=== PATIENT | female | born 1965 | race Caucasian/White ===

== ENCOUNTER 2024-02-14 10:49 | Outpatient (CLI) | payer MEDICARE, SELFPAY ==
--- NOTE | ~2024-02-14 | MR_ITS ---
EXAMINATION: MR shoulder RT wo con DATE: 02/14/2024 11:26 INDICATION: Primary osteoarthritis of the right shoulder TECHNIQUE: Magnetic resonance imaging (MRI) of the right shoulder was performed without intravenous c ontrast. Sequences included axial PD-weighted FS FSE, coronal oblique PD-weighted FS FSE, coronal obl ique T2-weighted FS FSE, sagittal PD-weighted FS FSE, and sagittal T1-weighted SE. COMPARISON: None. FINDINGS: Coracoacromial arch: The acromion undersurface is curved in morphology (type II). The coracoacromial ligament is normal. M oderate acromioclavicular osteoarthritis. Rotator cuff: Mild supraspinatus and infraspinatus tendinopathy without tear. The teres minor tendon is normal. Mil d subscapularis tendinopathy without tear. Normal rotator cuff muscle bulk and signal. Biceps tendon, glenoid labrum and glenohumeral cartilage: Long head of the biceps tendon is normal. There is advanced right glenohumeral osteoarthritis with ex tensive full-thickness cartilage loss with remodeling of the articular surface of the humeral head an d posterior glenoid. There is a tear along the base of the inferior, posterior and superior labrum. T he anterior labrum appears diminutive, partially replaced by marginal osteophytes. Fluid: Small glenohumeral joint effusion. No loose osteochondral bodies. Mild increased fluid signal in the subacromial/subdeltoid bursa consistent with mild bursitis. Bones: No acute fracture. There is suggestion of an old healed Bankart fracture at the anteroinferior glenoi d.. Mild cystic change at the greater tuberosity. IMPRESSION: 1. Advanced right glenohumeral osteoarthritis with extensive labral tear which could be secondary to prior trauma suggests an old healed osseous Bankart fracture at the anteroinferior glenoid. 2. Mild supraspinatus, infraspinatus and teres minor tendinopathy without tear. 2. Moderate acromioclavicular osteoarthritis with mild underlying subacromial/subdeltoid bursitis. Reviewed, dictated and finalized at location B. IMPRESSION: 1. Advanced right glenohumeral osteoarthritis with extensive labral tear which could be secondary to prior trauma suggests an old healed osseous Bankart fract ure at the anteroinferior glenoid. 2. Mild supraspinatus, infraspinatus and teres minor tendinopathy without tear. 2. Moderate acromioclavicular osteoarthritis with mild underlying subacromial/s ubdeltoid bursitis.
== END 2024-02-14 10:50 ==
LOC: MICIMG 10:50
PROVIDERS: PCP Orthopaedic Surgery; Visit Provider Orthopaedic Surgery
DX: M19.011 Primary osteoarthritis, right shoulder (principal); M67.813 Other specified disorders of tendon, right shoulder
CPT/HCPCS: 73221

== ENCOUNTER 2024-04-08 07:48 | Outpatient (CLI) | payer MEDICARE, SELFPAY ==
--- NOTE | ~2024-04-08 | CT_ITS ---
EXAMINATION: CT shoulder RT wo con DATE: 04/08/2024 08:17 INDICATION: Right shoulder primary osteoarthritis. Preoperative planning. TECHNIQUE: Computed tomography (CT) of the right shoulder was performed without intravenous contrast. Automated exposure control and iterative reconstruction technique were employed. The dose-length pro duct was 313.98 mGy-cm. COMPARISON: Right shoulder MRI 02/14/2024 FINDINGS: Bone alignment is normal. There is an old healed fracture of the glenoid. No acute fracture . There is severe osteoarthritis of acromioclavicular joint and glenohumeral joint. There is no asymm etric fatty atrophy of the rotator cuff muscle bellies. IMPRESSION: 1. Severe osteoarthritis of acromioclavicular joint and glenohumeral joint. Reviewed, dictated and finalized at location A.
== END 2024-04-08 07:49 | disposition home or self-care (01) ==
PROVIDERS: PCP Family Medicine; Visit Provider Orthopaedic Surgery
DX: M19.011 Primary osteoarthritis, right shoulder (principal)
CPT/HCPCS: 73200

== ENCOUNTER 2024-05-17 13:40 | Outpatient (CLI) | payer MEDICARE, SELFPAY ==
--- NOTE | 2024-05-17 14:34 | ECG_ITS ---
Test Date: 2024-05-17 14:40:33 Measurements Intervals S[place]ry Rate: 49 P: 11 MT: 162 QRS: -4 QRSD: 77 T: 44 QT: 440 QTc: 397 Interpretive Statements SINUS BRADYCARDIA WITH SINUS ARRHYTHMIA LOW QRS VOLTAGE IN PRECORDIAL LEADS [QRS DEFLECTION < 1.0 mV IN CHEST LEADS] No previous ECG available for comparison Electronically Signed On 05-17-2024 16:58:34 CDT by Black Leiva M.D.
[2024-05-17 14:53] LABS: Basophils Absolute Auto 0.1 K/mm3 (0.0-0.1); Basophils Percent Auto 1.3 % (0.2-1.2); Eosinophils Percent Auto 0.7 % (0-4.4); Hematocrit 41.3 % (37.0-47.0); Hemoglobin 14.1 g/dL (12.0-15.0); Lymphocytes Absolute Auto 2.33 K/mm3 (0.9-3.2); Mean Corpuscular HGB Conc 34.1 g/dl (32-36); Mean Corpuscular Hemoglobin 32.3 pg (26-34); Mean Corpuscular Volume 94.7 fl (80-100); Mean Platelet Volume 9.4 fl (7.4-10.4); Monocytes Absolute Auto 0.3 K/mm3 (0.1-0.6); Monocytes Percent Auto 6.8 % (2.6-8.5); Neutrophils Absolute Auto 1.8 K/mm3 (1.3-6.7); Neutrophils Percent Auto 40.2 % (45.5-73.1); Platelet Count Result 201 k/mm3 (150-375); Red Blood Count 4.36 M/mm3 (4.2-5.4); Red Cell Distribution Width 11.5 % (11.5-14.5); White Blood Count 4.6 K/mm3 (4.5-10.0)
[2024-05-17 16:15] LABS: MRSA (PCR) NOT DETECTED (NOT DETECTE)
== END 2024-05-17 13:41 | disposition home or self-care (01) ==
LOC: ANHSURGERY 13:45
PROVIDERS: PCP Family Medicine; Visit Provider Orthopaedic Surgery
DX: Z01.818 Encounter for other preprocedural examination (principal); M19.011 Primary osteoarthritis, right shoulder; R00.1 Bradycardia, unspecified; I49.8 Other specified cardiac arrhythmias
CPT/HCPCS: 36415; 85025; 87641; 93005

== ENCOUNTER 2024-06-08 00:39 | Day surgery (SDC) | payer MEDICARE, SELFPAY ==
[2024-05-17 13:53] VITALS: BMI 29.2
--- NOTE | 2024-05-17 14:19 | PC.NURSE ---
Report to the Outpatient Waiting Room, entrance under the green pavilion located off [facility], at time _6 AM on date _06/08/24 . Planned Procedure Time: __7:30 AM .? Time changes happen often and if your time is changed the preop area will call you the afternoon before. - You and your visitor will be asked to self-screen and do not enter if you have any COVID symptoms. Please call surgeon if you need to reschedule. - A mask is optional within the hospital at this time. Patients may have clear liquids (water, carbonated beverages, clear teas, apple juice) until 3 hours prior to surgery( 4:30 AM) with a maximum of 20 ounces. - No food from midnight until time of surgery and no smoking - Infants may have breast milk until 4 hours before surgery, infant formula 6 hours prior to surgery. - Children will be allowed to drink immediately following surgery.? If applicable, please bring a bottle or sippy cup to assist with drinking. Juice, water, soda, and popsicles are readily available.? For infants on formula, please bring formula the day of surgery.? Pacifiers are allowed. Take only the following medications with a SIP of water on the morning of surgery: __LEVOTHYROXINE DO NOT STOP ANY OF YOUR OTHER PRESCRIPTION MEDICATIONS PRIOR TO SURGERY EXCEPT THE FOLLOWING Medications to discontinue per physician ALL VITAMINS AND SUPPLEMENTS 3 DAYS PRE OP_LAST DOSE06/04/24 Please no make-up, nail tajik, hairspray, perfume, deodorant, or body powder the day of surgery.? No jewelry (including any body piercings) or valuables the day of surgery, leave them at home.? Please take a shower or bath the night before, or the morning of, surgery with an antibacterial soap.? Wear comfortable, loose fitting clothing.? Children are encouraged to wear pajamas. - Jewelry must be removed prior to entering the operating room.? Rings and piercings that are not removed may be cut off. - The hospital will not accept responsibility for valuables.? - Please leave all valuables, including medications, at home the day of surgery. If you are going home after surgery, a licensed recycling collections driver must drive you home.? - NO public transportation without another adult if you receive anesthesia. - We recommend that an adult stay with you for 24 hours following discharge. - We also recommend that you do not drive, make important decision, drink alcoholic beverages, or take any drugs that were not prescribed by your health care provider for at least 24 hours after your discharge time. For Pediatric surgeries, we recommend two adults accompany the child home. Follow any additional instructions given to you from your surgeon. VERBAL AND WRITTEN instructions given to _PATIENT and asked if any additional questions and then verbalized understanding. Patient advised to call surgeon office or pre surgery nurse liaison [phone] if any additional questions.
[2024-05-17 14:31] VITALS: BP 123/76; PULSE 66; RESP 18; TEMP 37.2; O2SAT 100
[2024-06-08] VITALS (13 sets, daily range): BP systolic 95–132; BP diastolic 41–96; PULSE 59–105; RESP 10–18; TEMP 35.8–36.8; O2SAT 98–100
--- NOTE | ~2024-06-08 | XR_ITS ---
XR shoulder RT min 2V Ordering provider: Marco A Rudolph MD History: . POST-OP, RIGHT TSA . Comparison: August 31, 2023 FINDINGS: BONES: No acute fracture or dislocation. JOINT SPACES: The acromioclavicular joint is normal. The glenohumeral joint shows a right shoulder ar throplasty. SOFT TISSUES: Postoperative changes in the right shoulder area. IMPRESSION: No acute osseous abnormality right shoulder. Right shoulder arthroplasty. Reviewed, dictated and finalized at location A.
[2024-06-08] MEDS: ACETAMINOPHEN 500 MG TABLET 1000 MG PO (06:18)
[2024-06-08] MEDS: LACTATED RINGERS 1,000 ML 30 ML IV CONT ×2 (06:50→10:53)
[2024-06-08] MEDS: TRANEXAMIC ACID 1,000MG/ISO100 1,000 MG/100 ML BAG 200 MG IVPB (07:00)
--- NOTE | 2024-06-08 07:10 | WPDHPUPDATE1 ---
History and Physical Update Update Date/Time: 06/08/24 07:10 History and Physical has been reviewed, including an updated exam of the patient. There are NO changes in the patient's condition. Risks, benefits, and alternatives have been discussed and questions answered. Patient agrees to proceed with procedure.
--- NOTE | 2024-06-08 07:16 | WPDANESEPPF ---
Anes - Initial Pre Proc Eval Procedure: Operation Date: 06/08/24 07:30 Proposed Procedures p Right Total Shoulder Arthroplasty - Marco A Rudolph MD Date/Time: 06/08/24 07:16 Surgeon: Marco A Rudolph MD Pre Op Diagnosis: primary oa right shoulder Patient Data Age: 58 Gender: F Height: 1.6 m Weight: 74.4 kg Last Vital Signs Temp 98.2 F 06/08/24 06:25 Pulse 59 L 06/08/24 06:25 Resp 16 06/08/24 06:25 BP 107/58 L 06/08/24 06:25 Pulse Ox 100 06/08/24 06:25 O2 Del Method Room Air 06/08/24 06:25 Allergies Allergy/AdvReac Type Severity Reaction Status Date / Time Sulfa (Sulfonamide AdvReac Unknown N/V-WAS Verified 06/08/24 06:10 Antibiotics) INFANT Home Medications Medication Instructions Recorded Confirmed Type alprazolam 1 mg tablet 1 mg PO HS 12/02/23 06/08/24 History levothyroxine 75 mcg capsule 75 mcg PO DAILY 12/02/23 06/08/24 History trazodone 100 mg tablet 100 mg PO QHS PRN Insomnia 12/02/23 06/08/24 History ergocalciferol (vitamin D2) 50,000 50,000 unit PO WEEKLY 03/02/24 06/08/24 History unit tablet mecobalamin (vitamin B12) 10,000 10,000 mcg subcut MONTHLY 05/17/24 06/08/24 History mcg solution for injection rimegepant 75 mg disintegrating 75 mg PO EVERY OTHER DAY 05/17/24 06/08/24 History tablet (Nurtec ODT) MIRGRAINE'S Laboratory Tests 06/08/24 06:16 Blood Type Pending Antibody Screen Pending Patient hx anesthesia problems: none Family hx anesthesia problems: none Results Review: All pre-operative results and documents have been reviewed as part of the pre-operative evaluation. [facility] Past Medical History Medical History Anemia Anxiety Carpal tunnel syndrome Cobalamin deficiency Depressive disorder Dislocation of prosthetic joint Disorder of coccyx Disorder of sacrum Hypothyroidism Iron deficiency Lesion of ulnar nerve Low back pain Lumbosacral spondylosis without myelopathy Migraine Mood swings Osteoarthritis of knee Primary localized osteoarthritis of pelvic region and thigh Prosthetic joint loosening Scoliosis deformity of spine Spinal enthesopathy Vitamin D deficiency Surgical History Surgical History History of 3 sections History of carpal tunnel surgery bilateral History of elbow surgery History of gastrointestinal surgery History of left hip replacement History of left knee replacement History of orthopedic surgery S/P knee replacement Family History Family History Grandparent Family history of malignant neoplasm of breast Daughter Depression Other Breast cancer Father No problems noted. 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 Do You Feel Safe in your Home?: Yes Lack of Transportation: No Lack of Food: Never True Current Housing: Decline to Answer Concerned About Future Housing: Decline to Answer Difficulty Paying Gas/Electric Bills: Decline to Answer Difficulty Paying for Meds: Decline to Answer Currently Unemployed: Decline to Answer Education: Trade/Vocational Certificate Difficulty w/ Childcare or Family Care: No Living arrangements: with family Occupation/Education: unemployed Additional occupation/education comments: disability Gender identity (if verbalized by the patient): Female Spiritual care concerns: No Anes - Eval Final PreProcedure Day of Procedure 06/08/24 07:16 Patient weight: normal Heart: regular rate and rhythm Lungs: clear to auscultation Airway: Mallampati scale class 1 Neurological: alert and oriented Last oral intake: >/= 8 hours ASA classification: II Emergent: no Anesthetic plan: proceed Anesthesia type and monitoring: general ETT and standard monitoring Results Review: All pre-operative results and documents have been reviewed as part of the pre-operative evaluation. Hypothyroidism. Pt w functional status limited by back/ortho pain, sometimes uses walker. No cp or sob w walking short distances. Informed Consent: The patient's anesthetic plan and its attendant risks and benefits were discussed with the patient/family/POA. Questions were solicited and answers provided to the satisfaction of the patient/family/POA.
[2024-06-08] MEDS: ceFAZolin 2 GM/D5W 50 ML 2 GM/50 ML BAG IVPB ×2 (07:50→17:00)
[2024-06-08] MEDS: SODIUM CHLORIDE 0.9% IV 37.7 ML, MORPHINE SULFATE INJ (*CRX) 2 MG, ROPivacaine HCL 1% 2... INFILTRATE (08:14)
[2024-06-08] MEDS: fentaNYL CITRATE INJ (*CRX) 100 MCG/2 ML VIAL 25 MCG IV PUSH ×2 (10:31→10:35)
--- NOTE | 2024-06-08 10:58 | P.OP_ITS ---
Procedure Note - Detailed Date of Procedure 06/08/24 Pre-op Diagnosis Severe right shoulder degenerative arthritis Post-op Diagnosis Same Procedure Performed Reverse total shoulder arthroplasty, right Surgeon Marco A Rudolph MD Anesthesia General Findings Dysplastic glenoid. 22? retroversion. Based on 3 dimensional planning was elected to proceed with reverse total shoulder arthroplasty with a 15 degree augment. Excellent range of motion and stability confirmed at the conclusion of the procedure. Description of Procedure The patient was given an interscalene block in the preoperative area. Preoperative antibiotics were given. The patient was transferred to the operating room and a general anesthetic was administered. The beach chair position was used at 45 degrees. All bony prominences were padded. The head was carefully stabilized on the [facility] global head advertiser solutions. A sterile prep and drape was performed in the usual manner with ChloraPrep. A longitudinal incision was created at the anterior shoulder just lateral to the deltopectoral interval. Hyd rogen peroxide was placed on the incision and then rinsed after one minute. Careful dissection was performed to expose the interval and protect the cephalic vein. The vein was retracted medially. The upper border of the pectoralis was released. Anterior circumflex vessel branches were suture ligated. The biceps was tenodesed. A subscapularis tenotomy was performed. The inferior capsule was released, exposing the humeral head. Osteophytes were removed. Care was taken to stay on bone to protect the axillary nerve. The anatomic head cut was taken with the oscillating saw. The guide pin was placed, central drilling performed, and the broach trial inserted. The neck anteversion and inclination were carefully assessed. The cut protector was placed, and attention was turned to the glenoid. Retractors were placed. Releases were carried out for exposure. The subscapularis was mobilized, the inferior capsule and long head of triceps released, and the superior and middle glenohumeral ligaments released as well. Labral tissue was resected as needed. The sizing template was used to assess the baseplate position low on the glenoid. A guide pin was placed. Minimal reaming was used to accomplish a flat surface without violating the subchondral bone. Version was corrected according to preoperative templating. The boss was drilled, and the real component was impacted into position. Supplemental locking screws were placed centrally, superiorly, and inferiorly. The glenosphere was impacted into the taper. The proximal humerus was reamed for the inset component. The humeral components were trialed. The real humeral stem, tray, and insert were impacted into position. The shoulder was copiously irrigated periodically with pulsatile lavage. The shoulder was reduced and stability confirmed. 1 gram of Vancomycin powder was placed in the joint. The biceps tenodesis was incorporated with the pectoralis tendon repair. The deltopectoral space was reapproximated with number 1 Vicryl. The remaining tissue was closed with 0 Quill and 2-0 Quill running suture and steri-strips. A sterile silver occlusive dressing and shoulder immobilizer were placed. The patient was transferred to the recovery room. Implants Shoulder [employer]ations reverse TSA size 0 stem. +0 polyethylene insert. 15 augmented baseplate. 33 + 3 mm glenosphere. Estimated Blood Loss 300 Drains No Pathology None sent Complications No immediate complications Condition Stable Disposition PACU [facility] Billing Surgery - Charge Forward: Surgery Billing
--- NOTE | 2024-06-08 11:35 | ADMGEN ---
This patient, Laine Pop, was admitted to 3 [facility] Surg Room 319-01. Patient/family oriented to hospital policies and general routines including ID bracelet, bed and alarms, visiting hours, pain management, procedures, bathroom and other care routines, personal items, smoking policy, room service/diet, and visiting hours. Information on how to activate the Rapid Response Team has been discussed. Patient/Family are encouraged to report perceived risks to care and to ask questions if they do not understand what they are told or what they should do.
[2024-06-08] MEDS: polyethylene glycoL 3350 17 GM POWD.PACK PO (12:37)
[2024-06-08] MEDS: SENNA/DOCUSATE SODIUM TABLET 2 TAB PO ×2 (12:37→17:00)
[2024-06-08] MEDS: ASPIRIN 81 MG ENTERIC TABLET PO ×2 (12:37→20:35)
[2024-06-08] MEDS: FAMOTIDINE 20 MG TABLET PO ×2 (12:37→20:36)
[2024-06-08] MEDS: ACETAMINOPHEN 325 MG TABLET 650 MG PO ×2 (12:37→17:00)
[2024-06-08] MEDS: oxyCODONE/ACETAMINOPHEN (*CRX) 10-325 MG TABLET 1 TAB PO ×2 (13:47→20:36)
[2024-06-08] MEDS: ONDANSETRON INJ 4 MG/2 ML VIAL IV PUSH (14:34)
[2024-06-08] MEDS: ALPRAZolam (*CRX) 0.5 MG TABLET 1 MG PO (20:35)
[2024-06-08] MEDS: traZODone HCL 50 MG TABLET 100 MG PO (20:35)
[2024-06-09] MEDS: ACETAMINOPHEN 325 MG TABLET 650 MG PO ×2 (00:47→06:39)
[2024-06-09 00:58] VITALS: BP 100/50; PULSE 70; RESP 16; TEMP 36.2; O2SAT 99
[2024-06-09] MEDS: ceFAZolin 2 GM/D5W 50 ML 2 GM/50 ML BAG IVPB ×2 (01:12→08:44)
[2024-06-09 05:18] VITALS: BP 103/57; PULSE 63; RESP 17; TEMP 36.3; O2SAT 99
[2024-06-09] MEDS: LEVOTHYROXINE SODIUM 75 MCG TABLET PO (06:39)
[2024-06-09 06:59] LABS: Basophils Percent Auto 0.6 % (0.2-1.2); Eosinophils Percent Auto 0.3 % (0-4.4); Hematocrit 35.2 % (37.0-47.0); Hemoglobin 11.4 g/dL (12.0-15.0); Immature Granulocyte Absolute 0.02 K/mm3 (0.00-0.031); Immature Granulocyte Percent A 0.3 % (0-0.5); Lymphocytes Absolute Auto 1.99 K/mm3 (0.9-3.2); Lymphocytes Percent Auto 29.4 % (18.3-44.2); Mean Corpuscular HGB Conc 32.4 g/dl (32-36); Mean Corpuscular Hemoglobin 31.5 pg (26-34); Mean Corpuscular Volume 97.2 fl (80-100); Mean Platelet Volume 9.7 fl (7.4-10.4); Monocytes Absolute Auto 0.4 K/mm3 (0.1-0.6); Monocytes Percent Auto 6.5 % (2.6-8.5); Neutrophils Absolute Auto 4.3 K/mm3 (1.3-6.7); Neutrophils Percent Auto 62.9 % (45.5-73.1); Platelet Count Result 167 k/mm3 (150-375); Red Blood Count 3.62 M/mm3 (4.2-5.4); Red Cell Distribution Width 11.7 % (11.5-14.5); White Blood Count 6.8 K/mm3 (4.5-10.0)
[2024-06-09 07:22] LABS: Anion Gap 7 mmol/L (4-12); Blood Urea Nitrogen 11 mg/dL (7-17); Calcium 8.7 mg/dL (8.4-10.2); Carbon Dioxide 25 mmol/L (22-30); Chloride 100 mmol/L (98-107); Estimated CRCL calculation 84 ml/min; Estimated Glomerular Filt Rate > 60; Glucose 81 mg/dL (65-110); Potassium 3.6 mmol/L (3.4-5.0); Sodium 132 mmol/L (137-145)
--- NOTE | 2024-06-09 07:42 | P.PNAN_ITS ---
Anes - Prog Note Post-Op Date/Time: 06/09/24 07:42 Cardiovascular status: normal Respiratory status: normal Airway patency: baseline Mental status: baseline Post-Op hydration status: normal Vital Signs: Last Vital Signs Temp 36.3 C L 06/09/24 05:18 Pulse 63 06/09/24 05:18 Resp 17 06/09/24 05:18 BP 103/57 L 06/09/24 05:18 Pulse Ox 99 06/09/24 05:18 O2 Del Method Room Air 06/08/24 20:00 O2 Flow Rate 8 06/08/24 10:15 Pain Score (VAS): 09/25 I/O: Intake & Output 06/08/24 06/08/24 06/09/24 15:59 23:59 07:59 Intake Total 300 530 450 Output Total 500 Balance 300 530 -50 Laboratory Tests 06/09/24 06:40 06/09/24 06:40 06/08/24 06/09/24 06:16 06:40 WBC 6.8 RBC 3.62 L Hgb 11.4 L Hct 35.2 L MCV 97.2 MCH 31.5 MCHC 32.4 RDW 11.7 Plt Count 167 MPV 9.7 Immature Gran % (Auto) 0.3 Neut % (Auto) 62.9 Lymph % (Auto) 29.4 [place] % (Auto) 6.5 Eos % (Auto) 0.3 Baso % (Auto) 0.6 Lymph # (Auto) 1.99 [place] # (Auto) 0.4 Eos # (Auto) 0.0 Baso # (Auto) 0.0 Abs Immat Gran (auto) 0.02 Absolute Neuts (auto) 4.3 Absolute Nucleated RBC 0.000 Nucleated RBC % 0.0 Sodium 132 L Potassium 3.6 Chloride 100 Carbon Dioxide 25 Anion Gap 7 BUN 11 Creatinine 0.60 L Estim Creat Clear Calc 84 Estimated GFR > 60 Glucose 81 Calcium 8.7 Antibody Screen Negative Post-procedural complaints: none Patient Feedback: Patient satisfied with anesthetic care.
--- NOTE | 2024-06-09 07:59 | PM.DS ---
DS: Admitting Diagnosis Discharge Date 06/09/24 Admitting Diagnosis Glenohumeral joint arthritis DS: Discharge Diagnosis Discharge Diagnosis (1) Status post reverse total arthroplasty of right shoulder: Code(s): Z96.611 - Presence of right artificial shoulder joint Status: Acute Assessment and Plan: Postop day 1: Right reverse total shoulder. Patient tolerated procedure well. No complications. Pain manageable with pain medication. No numbness or tingling. We had a lengthy discussion regarding postoperative wound care, limitations, expectations, and exercises. Patient shows good understanding. She has had initial physical therapy and is tolerating it well. DVT prophylaxis: 81 mg baby aspirin b.i.d. for 14 days. Pain medication: Percocet. Patient has followup appointment with Dr. Rudolph in 3 weeks. DS: Summary Hospital Course Hospital Course: Patient tolerated procedure well. Has had initial PT/OT and made good progress. Status at Discharge Functional status at discharge: independent ambulation Overall status at discharge: patient is progressing back to baseline Time Spent with Patient Time attestation: Total time spent providing and/or coordinating discharge services: Exam Narrative: overweight 58 y/o Female. Resting comfortably in chair. Wearing sling. Dressing dry and intact with no drainage. Mild swelling. No ecchymosis. No erythema. No hematoma. Range of motion limited due to pain. Calf nontender. Neurologic status intact. No varicosities. Distal pulses palpable. DS: Data Data Completed and Pending Labs on day of discharge: Labs from last 24 hours 06/09/24 06:40 WBC 6.8 RBC 3.62 L Hgb 11.4 L Hct 35.2 L MCV 97.2 MCH 31.5 MCHC 32.4 RDW 11.7 Plt Count 167 MPV 9.7 Immature Gran % (Auto) 0.3 Neut % (Auto) 62.9 Lymph % (Auto) 29.4 [place] % (Auto) 6.5 Eos % (Auto) 0.3 Baso % (Auto) 0.6 Lymph # (Auto) 1.99 [place] # (Auto) 0.4 Eos # (Auto) 0.0 Baso # (Auto) 0.0 Abs Immat Gran (auto) 0.02 Absolute Neuts (auto) 4.3 Absolute Nucleated RBC 0.000 Nucleated RBC % 0.0 Sodium 132 L Potassium 3.6 Chloride 100 Carbon Dioxide 25 Anion Gap 7 BUN 11 Creatinine 0.60 L Estim Creat Clear Calc 84 Estimated GFR > 60 Glucose 81 Calcium 8.7 Discharge Plan Discharge Patient Disposition: Home, Self-Care Discharge Instructions: See green instruction sheets Patient Instructions: Pain Management (GEN) Stand Alone Forms: General Discharge Instructions Follow-up/Referrals: Aiyana Kimball PA [Physician Breakfast Hostess] - Discharge Medications: New aspirin 81 mg tablet,delayed release (DR/EC) 81 mg PO BID 14 Days Qty: 28 0RF oxycodone-acetaminophen 5-325 mg tablet 1 - 2 tablet PO Q4-6H PRN (Reason: pain) 7 Days Qty: 30 0RF Continued alprazolam 1 mg tablet 1 mg PO HS trazodone 100 mg tablet 100 mg PO QHS PRN (Reason: Insomnia) levothyroxine 75 mcg capsule 75 mcg PO DAILY ergocalciferol (vitamin D2) 50,000 unit tablet 50,000 unit PO WEEKLY Patient Comments: TAKES ON SATURDAYS mecobalamin (vitamin B12) 10,000 mcg Recon Soln 10,000 mcg subcut MONTHLY Nurtec ODT 75 mg tablet,disintegrating 75 mg PO EVERY OTHER DAY
[2024-06-09] MEDS: SENNA/DOCUSATE SODIUM TABLET 2 TAB PO (08:44)
[2024-06-09] MEDS: ASPIRIN 81 MG ENTERIC TABLET PO (08:44)
[2024-06-09] MEDS: polyethylene glycoL 3350 17 GM POWD.PACK PO (08:44)
[2024-06-09] MEDS: FAMOTIDINE 20 MG TABLET PO (08:44)
[2024-06-09 09:18] VITALS: BP 95/58; PULSE 78; RESP 18; TEMP 36.2; O2SAT 100
== END 2024-06-09 10:20 | disposition home or self-care (01) ==
LOC: ANHSURGERY 08:16 → ANH3MEDSUR 11:40
PROVIDERS: Physician Assistant Surgical; PCP Family Medicine; Visit Provider Orthopaedic Surgery
PROC: (CPT 23472; principal; 2024-06-08 07:30)
DX: M19.011 Primary osteoarthritis, right shoulder (principal); M25.711 Osteophyte, right shoulder; E03.9 Hypothyroidism, unspecified; E55.9 Vitamin D deficiency, unspecified; D64.9 Anemia, unspecified; F41.9 Anxiety disorder, unspecified; D51.9 Vitamin B12 deficiency anemia, unspecified; E61.1 Iron deficiency; F32.A Depression, unspecified; M47.817 Spondylosis without myelopathy or radiculopathy, lumbosacral region; M19.09 Primary osteoarthritis, other specified site; M41.9 Scoliosis, unspecified; Z98.890 Other specified postprocedural states; Z87.891 Personal history of nicotine dependence; Z80.3 Family history of malignant neoplasm of breast
CPT/HCPCS: 23472; 36415; 73030; 80048; 85025; 86850; 86900; 86901; 97110; 97161; 97165; 97530; 97535; A4565; A9270; C1776; J0171; J0690; J1100; J1885; J2003; J2250; J2270; J2405; J2704; J2795; J3010; J3370; J7120

== ENCOUNTER 2025-03-07 13:08 | Outpatient (CLI) | payer MEDICARE, SELFPAY ==
--- NOTE | ~2025-03-07 | XR_ITS ---
XR shoulder RT min 2V 03/07/2025 13:33 Indication: Right shoulder arthroplasty Procedure: 4 views right shoulder Comparison: 08/07/2024 Findings: There is a right shoulder arthroplasty. No fracture, subluxation or dislocation. No signifi cant soft tissue abnormality. No foreign bodies. Prosthesis well seated. Impression: 1: Stable alignment of right shoulder arthroplasty. No acute bone or joint abnormality. Reviewed, dictated and finalized at location A. Impression: 1: Stable alignment of right shoulder arthroplasty. No acute bone or joint abno rmality.
--- OUTSIDE RECORDS SUMMARY | 2025-03-07 13:16 | XMS_ITS | Referral Summary ---
Author Organization [facility] Address [address] [place] [id number] Care Team Providers Care Fund Manager Name Role Phone Rodrick Hernández MD Unavailable [phone] Fredrick Alberts MD Primary Care Provider [phone] Romero CORRALES MD, Dell Ye Unavailable [phone] Allergies Active Allergy Reactions Criticality Noted Date Comments Sulfa (Sulfonamide Antibiotics) Vomiting Low Medications ALPRAZolam (XANAX) 1 mg tablet Take 1 tablet (1 mg total) by mouth nightly as needed for anxiety 0 Active cyanocobalamin (Vitamin B-12) 1,000 mcg/mL injectionIndica tions:Vitamin B12 Deficiency Inject 1 mL (1,000 mcg total) under the skin every 30 (thirty) days 0 Active levothyroxine (SYNTHROID) 100 mcg tablet Take 1 tablet (100 mcg total) 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 0 Active Nurtec ODT tablet,disinteg rating Place 1 tablet (75 mg total) under the tongue every other day 4 Active traZODone (DESYREL) 100 mg tablet Take 1 tablet (100 mg total) by mouth nightly 4 Active ergocalciferol (VITAMIN D) 50,000 unit capsuleIndicati ons:Vitamin D Deficiency Take 1 capsule (50,000 Units total) by mouth once a week Active fluticasone propionate (FLONASE) 50 mcg/actuation nasal sprayIndication s:Allergic Rhinitis Administer 2 sprays into each nostril daily 18.2 mL 3 4 Active Active Problems Problem Noted Date Diagnosed Date Deviated nasal septum 04/19/2024 Hypertrophy of nasal turbinates 04/19/2024 Chronic maxillary sinusitis 04/19/2024 Chronic sphenoidal sinusitis 03/21/2024 Dysfunction of both eustachian tubes 03/21/2024 Iron deficiency anemia 03/29/2020 Status post left hip replacement 06/15/2019 Hypogammaglobulinemia 07/03/2015 Anemia 02/29/2012 Adenocarcinoma of cervix 02/29/2012 Immunizations Immunization Administration Dates Next Due Influenza, Quadrivalent, Spl it, Preservative Free, Intramuscular 05/18/2019,05/20/2018 Influenza, Unspecified 09/03/2016,2015,06/14/2015,04/05 Pneumococcal Conjugate PCV 13 10/20/2016 Tdap 06/08/2017 ZOSTER LIVE 09/03/2016 Social History Tobacco Use Types Packs/Day Years Used Date Smoking Tobacco: Former Cigarettes Q uit: 2016 Smokeless Tobacco: Never Tobacco Cessation:Counseling Given: Not Answered Alcohol Use Standard Drinks/Week Comments Not Currently 30 (1 standard drink = 0.6 oz pu re alcohol) AUDIT-C Answer Date Recorded Q1: How often do you have a drink containing alcohol? Never 04/26/2024 Q2: How many drinks containi ng alcohol do you have on a typical day when you are drinking? Patient does not drink Q3: How often do you have si x or more drinks on one occasion? Never 04/26/2024 Personal Safety Answer Date Recorded Have you ever been in or are you currently in a harmful physical or emotional relationship or is someone making you feel afraid or unsafe? 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 Gender Identity Not on file Sexual Orientation Not on file Last Filed Vital Signs Vital Sign Reading Time Taken Comments Blood Pressure 109/63 04/26/2024 12:40 PM CDT Pulse 53 04/26/2024 12:40 PM CDT Temperature 36.8 C (98.2 F) 05/02/2024 11:08 AM CDT Respiratory Rate 18 05/16/2024 11:22 AM CDT Oxygen Saturation 100% 04/26/2024 12:40 PM CDT Inhaled Oxygen Concentration - - Weight 74.8 kg (165 lb) 05/16/2024 11:22 AM CDT Height 160 cm (5' 3) 05/16/2024 11:22 AM CDT Body Mass Index 29.23 05/16/2024 11:22 AM CDT Plan of Treatment Not on file Medical Devices Implanted Type Area Washer Engineer Helper Device Identifier Shelf Expiration Date Model / Serial / Lot Plate (X2) Plate Left: Arm Screw (X24) Screw Left: Arm Hip Left: Hip Left Knee Replacement Left: Knee Insurance [place] [id number] [facility] MEDICARE [facility] Address: [place] [id number] [place] [address] [id number] [employer] MEDICARE [facility] Address: [address] [address] [place] [address] Care Teams Fund Manager Relationship Specialty [place] [address] [place] [address] PCP - General Family Practice 03/13/24 Rodrick Hernández MD Medical Oncologist/School Treasurer Hematology and Oncology 04/09/20 Dell Jasso II, MD [address] [place] [address] Consulting Physician Otolaryngology 04/26/24
--- OUTSIDE RECORDS SUMMARY | 2025-03-07 13:16 | XMS_ITS | Encounter Summary ---
Author Organization [facility] Address [address] [place] [id number] Care Team Providers Care Child Care Leader Name Role Phone Fredrick Alberts MD Primary Care Provider [phone] Encounter Details Date Type Department Care Team (Latest Contact Info) Description 01/31/2025 Results Follow-Up [facility] Family & Internal Medicine [facility] [id number] [place] [phone] [place] [id number] [place] [id number] GI PANEL PCR - STOOL, COMPREHENSIVE METABOLIC PANEL, CBC W/DIFF AUTOMATED Social History Tobacco Use Types Packs/Day Years Used Date Smoking Tobacco: Former Cigarettes Q uit: 08/16/2012 Smokeless Tobacco: Never Alcohol Use Standard Drinks/Week Comments Not Currently 0 (1 standard drink = 0.6 oz pur e alcohol) recoving alcholic PHQ-2 Answer Date Recorded Patient Health Questionnaire-2 Score 1 10/12/2023 Comments No Sex and Gender Information Value Date Recorded Sex Assigned at Female 09/08/2024 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 Called pt on 02-01 and informed her of this. She v/u. Referral placed. * Megan Virk RN - 01/31/2025 11:17 AM CDT Called pt and informed her of results. She v/u. States she is still having diarrhea. Informed her per Dr Alberts, ok to take Immodium OTC now since stool panel is negative. Pt v/u. * Fredrick Alberts MD - 01/31/2025 9:00 AM CDT Neg wbc with normal renal,electrolytes and stool pcr documented in this encounter Plan of Treatment Upcoming Encounters Date Type Department Care Team (Late st Contact Info) Description 03/19/2025 9:30 AM CDT Office Visit [facility] Family & Internal Medicine [facility] [address] [place] [address] [place] [address] [phone] 04/04/2025 10:40 AM CDT Office Visit [facility] [address] [place] [address] [place] [address] [place], [place] [phone] Christine Alberts NP [address] [facility] [address] [place] [phone] documented as of this encounter Visit Diagnoses Not on filedocumented in this encounter Care Teams Child Care Leader Relationship Specialty [place] [address] [place] [place] [address] PCP - General FAMILY PRACTICE 09/27/23 documented as of this encounter
--- OUTSIDE RECORDS SUMMARY | 2025-03-07 13:16 | XMS_ITS | Clinical Summary ---
Author Organization [facility] Address [facility] [place] [address] Care Team Providers Care [place] Worker Name Role Phone Fredrick Alberts MD Primary Care Provider [phone] Allergies Active Allergy Reactions Criticality Noted Date Comments Sulfa Antibiotics Vomiting 09/26/2018 Medications NURTEC 75 MG disintegrating tablet DISSOLVE 1 TABLET ON THE TONGUE EVERY OTHER DAY. Active cyanocobalamin (B-12) 1000 MCG/ML injectionIndicati ons:Vitamin B12 deficiency Inject 1 mL (1,000 mcg total) into the muscle every 30 (thirty) days. 10 mL 11/01/19 25 Active SYRINGE-NEEDLE, DISP, 3 ML (BD ECLIPSE SYRINGE) 25G X 1 3 ML MiscIndications:V itamin B12 deficiency Use to inject Vitamin B12 IM once per month 50 each 11/01/19 25 Active levothyroxine (SYNTHROID) 75 MCG tabletIndications :Hypothyroidism, unspecified type TAKE 1 TABLET(75 MCG) BY MOUTH DAILY 90 tablet 1 12/15/19 25 Active FLUoxetine (PROZAC) 10 MG tabletIndications :Recurrent major depressive disorder, in partial remission TAKE 1 TABLET(10 MG) BY MOUTH DAILY 90 tablet 01/26/20 25 Active traZODone (DESYREL) 100 MG tabletIndications :Primary insomnia TAKE 1 TABLET(100 MG) BY MOUTH EVERY NIGHT AT BEDTIME 90 tablet 1 01/26/20 25 Active ALPRAZolam (XANAX) 1 MG tabletIndications :Anxiety TAKE 1 TABLET BY MOUTH AT BEDTIME NEEDED 30 tablet 02/17/20 25 Active lamoTRIgine (LAMICTAL) 25 MG tabletIndications :Bipolar 2 disorder (CMS/HCC HHS/HCC) Take 1 tablet (25 mg total) by mouth daily for 14 days, THEN 2 tablets (50 mg total) daily for 14 days. 42 tablet 02/21/20 25 025 Active diphenhydrAMINE-A PAP (TYLENOL PM) 25-500 MG Tab tablet Take 1 tablet by mouth nightly at bedtime. Active vitamin D2, ergocalciferol, (DRISDOL) 1.25 mg capsuleIndication s:Vitamin D deficiency TAKE 1 CAPSULE(1.2 5 MG) BY MOUTH 1 TIME A WEEK 15 capsule 1 12/15/19 25 025 Discontinued(P t. elected to discontinue med) ALPRAZolam (XANAX) 1 MG tabletIndications :Anxiety TAKE 1 TABLET BY MOUTH AT BEDTIME NEEDED 30 tablet 01/16/20 25 025 Discontinued DULoxetine (CYMBALTA) 30 MG capsule TAKE 1 CAPSULE BY MOUTH EVERY MORNING FOR 1 WEEK THEN TAKE 2 CAPSULES BY MOUTH EVERY MORNING 03/01/20 24 025 Discontinued(P t. elected to discontinue med) dicyclomine (BENTYL) 20 MG tabletIndications :Diarrhea, unspecified type Take 1 tablet (20 mg total) by mouth every 6 (six) hours. 60 tablet 01/31/20 25 025 Discontinued(P t. elected to discontinue med) lamoTRIgine Starter Kit-Blue 35 x 25 MG KitIndications:Bi polar 2 disorder ([facility]) Take 25 mg by mouth daily for 14 days, THEN 50 mg daily for 14 days. 1 kit 02/20/20 25 025 Discontinued(I nsurance denial) Active Problems Problem Noted Date Diagnosed Date Bipolar 2 disorder ([facility]) 02/20/2025 TJ (generalized anxiety disorder) 02/20/2025 Medication management 02/20/2025 History of total hysterectomy 09/12/2024 Overview (09/12/2024): 2009 History of reverse total rep lacement of right shoulder joint 06/08/2024 Vitamin B12 deficiency 05/29/2024 Deviated nasal septum 04/19/2024 Hypertrophy of nasal turbinates 04/19/2024 Acquired hypothyroidism 04/18/2024 Chronic sphenoidal sinusitis 03/21/2024 Dysfunction of both eustachian tubes 03/21/2024 Sacro-iliac pain 02/22/2024 Iron deficiency anemia 03/29/2020 Status post left hip replacement 06/15/2019 Severe episode of recurrent major depressive disorder, without psychotic features ([facility]) 09/26/2018 Hypogammaglobulinemia ([facility]) 07/03/2015 Adenocarcinoma of cervix ([facility]) 02/28 Anemia 02/29/2012 Encounters Date Type Department Care Team Description 03/06/2025 MyChart Message Enc [facility] Family Internal [facility] [address] [place] [address] Larry Adams NP Contact information for Dr. Martines's office 03/05/2025 10:45 AM CDT Office Visit [facility] Internal [facility] [address] [place] [address] Larry Adams NP Anxiety; Depression 03/05/2025 Travel 02/21/2025 Telephone [facility] [address] [place] [address] Fredrick Alberts MD Medication Information 02/20/2025 Telephone [facility] [address] [place] [address] Fredrick Alberts MD Medication Request 02/20/2025 Results Follow-Up [facility] Internal [facility] [address] [place] [address] Larry Adams NP LH, LUTEINIZING HORMONE, FSH, FOLLICLE STIM HORMONE, HEMOGLOBIN, GLYCOSYLATED, Additional followed-up results: 8 02/19/2025 5:09 PM CDT - 02/19/2025 11:59 PM CDT Hospital Encounter [facility] [address] [place] [address] Larry Adams NP Discharge Disposition: Home or Self Care (Routine Discharge) 02/19/2025 4:10 PM CDT Laboratory Only [address] [phone] Larry Adams NP 02/19/2025 2:30 PM CDT Office Visit [address] [address] Larry Adams NP Anxiety; Depression (Here to discuss depression and anxiety) 02/19/2025 Travel 02/01/2025 MyChart Message Enc [address] [address] Fredrick Alberts MD Diarrhea 01/31/2025 Results Follow-Up [address] [address] Fredrick Alberts MD GI PANEL PCR - STOOL, COMPREHENSIVE METABOLIC PANEL, CBC W/DIFF AUTOMATED 01/30/2025 10:22 AM CDT - 01/30/2025 11:59 PM CDT Hospital Encounter [facility] [address] [place] [id number] Fredrick Alberts MD Discharge Disposition: Home or Self Care (Routine Discharge) 01/30/2025 10:10 AM CDT Laboratory Only [address] [phone] Fredrick Alberts MD 01/30/2025 7:00 AM CDT Office Visit [address] [address] Fredrick Alberts MD Tremors; Diarrhea (Pt states for the passed month she has diarrhea every day); Perspiration (Pt states she has been getting hot flashes ); Bleeding/Bruising (Pt c/o bruising all over her body and she is not sure why ); Depression (sad/crying) (Pt states she would like to see larry ); Fever (Pt states she has been getting a low grade fever ) 01/30/2025 Travel from Last 3 Months Immunizations Immunization Administration Dates Next Due HPV GARDASIL 9-VALENT 09/02/2022 Influenza (Generic) 09/03/2016, 6,06/14/2015,04/05/20 15 Influenza Adult (Generic) 05/05/2023,,05/24/2021,05/18/20 19,05/20/2018 Pneumococcal (Prevnar 13) 10/20/2016 Shingrix 10/19/2022,08/03/2022 Tdap (Generic) 09/01/2022,06/08/2017 Zoster (Zostavax) 68005 Unt/0.65Ml 09/03/2016 Family History Medical History Relation Comments No Known Problems Daughter No Known Problems Father Breast Cancer Maternal Aunt No Known Problems Maternal Grandfather Breast Cancer Maternal Grandmother Cancer Maternal Uncle Fibromyalgia Mother Hypertension Mother No Known Problems Other No Known Problems Paternal Aunt No Known Problems Paternal Grandfather No Known Problems Paternal Grandmother No Known Problems Paternal Uncle No Known Problems Son Relation Status Comments Daughter Father Maternal Aunt Maternal Grandfather Maternal Grandmother Maternal Uncle Mother Other Paternal Aunt Paternal Grandfather Paternal Grandmother Paternal Uncle Son Social History Tobacco Use Types Packs/Day Years Used Date Smoking Tobacco: Former Cigarettes Q uit: 08/16/2012 Smokeless Tobacco: Never Tobacco Cessation:Counseling Given: Not Answered Alcohol Use Standard Drinks/Week Comments Not Currently 0 (1 standard drink = 0.6 oz pur e alcohol) recoving alcholic PHQ-2 Answer Date Recorded Patient Health Questionnaire-2 Score 6 03/05/2025 Comments No Sex and Gender Information Value Date Recorded Sex Assigned at Female 09/08/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 Sex Female 5:06 PM CDT Gender Identity Not on file Sexual Orientation Not on file Last Filed Vital Signs Vital Sign Reading Time Taken Comments Blood Pressure 95/54 03/05/2025 10:36 AM CDT Pulse 72 03/05/2025 10:36 AM CDT Temperature 37.7 C (99.9 F) 03/05/2025 10:36 AM CDT Respiratory Rate 18 03/05/2025 10:36 AM CDT Oxygen Saturation 100% 03/05/2025 10:36 AM CDT Inhaled Oxygen Concentration - - Weight 66.8 kg (147 lb 3.2 oz) 03/05/2025 10:36 AM CDT Height 160 cm (5' 3) 03/05/2025 10:36 AM CDT Body Mass Index 26.08 03/05/2025 10:36 AM CDT Plan of Treatment Upcoming Encounters Date Type Department Care Team (Late st Contact Info) Description 03/19/2025 9:30 AM CDT Office Visit [facility] & Internal [facility] [place] [address] [place] [address] [place] [address] [address] 04/04/2025 10:40 AM CDT Office Visit [facility] [place] [address] [place] [address] [place] [address] [place] [address] Christine Alberts NP [address] [facility] [address] [place] [address] Health Maintenance Due Date Last Done Comments Colorectal Cancer Screening Colonoscopy (10 Years) 1965 Hepatitis C 11/28/1983 Mammogram Screening 2005 Pneumococcal Vaccine: 50+ Years (2 of 2 - PPSV23) 10/20/2017 10/20/2016 COVID-19 Vaccine ( season) 2024 05/05/2023, 09/01/2022, 04/22/2022, Additional history exists Annual Physical 10/12/2024 10/12/2023 DTaP, Tdap and Td Vaccines (3 - Td or Tdap) 09/01/2032 09/01/2022, 06/08/2017 Zoster Vaccines Completed 10/19/2022, 07/16, 09/03/2016 PHQ-2 (Physician Teller) Completed 03/05/2025 Meningococcal B Vaccine Aged Out No l onger eligible based on patient's age to complete this topic Meningococcal Vaccine Aged Out No mark jaye eligible based on patient's age to complete this topic RSV Immunizations Under 20 Months Aged Out No longer eligible based on patient's age to complete this topic Procedures Procedure Name Priority Date/Time Associated Diagnosis Comments COLLECTION VENOUS BLOOD VENIPUNCTURE Routine 02/19/2025 4:07 PM CDT Medication management VITAMIN D, 25 OH Routine 02/19/2025 4:04 PM CDT Medication management VITAMIN B-12 Routine 02/19/2025 4:04 PM CDT Medication management TSH W/REFLEX Routine 02/19/2025 4:04 PM CDT Medication management LIPID PANEL Routine 02/19/2025 4:04 PM CDT Medication management HEMOGLOBIN, GLYCOSYLATED Routine 02/19/2025 4:04 PM CDT Medication management FSH, FOLLICLE STIM HORMONE Routine 02/19/2025 4:04 PM CDT Medication management LH, LUTEINIZING HORMONE Routine 02/19/2025 4:04 PM CDT Medication management ESTRADIOL Routine 02/19/2025 4:04 PM CDT Medication management PROGESTERONE Routine 02/19/2025 4:04 PM CDT Medication management TESTOSTERONE, TOTAL Routine 02/19/2025 4 :04 PM CDT Medication management MG/PCCL UDS W CONF Routine 02/19/2025 3: 59 PM CDT Medication management COLLECTION VENOUS BLOOD VENIPUNCTURE Routine 01/30/2025 10:15 AM CDT Diarrhea, unspecified type CBC W/DIFF AUTOMATED Routine 01/30/2025 10:14 AM CDT Diarrhea, unspecified type COMPREHENSIVE METABOLIC PANEL Routine 01/30/2025 10:14 AM CDT Diarrhea, unspecified type GI PANEL PCR - STOOL Routine 01/30/2025 10:00 AM CDT Diarrhea, unspecified type Other specified bacterial intestinal infections from Last 3 Months Results * TSH W/REFLEX (02/19/2025 4:04 PM CDT) TSH 1.078 0.358 - 3.74 uIU/ML 02/19/2025 5:56 PM CDT [facility] Comment: HIGH DOSES OF BIOTIN MAY INTERFERE WITH THIS TEST RESULT. CORRELATION TO CLINICAL HISTORY AND PRESENTATION RECOMMENDED. FREE T4 NOT INDICATED 02/19/2025 4:04 PM CDT Larry Adams NP LABORATORY Final Result [facility] [address] [place] [address], * HEMOGLOBIN, GLYCOSYLATED (02/19/2025 4:04 PM CDT) HGB A1C 4.8 <5.7 % 02/19/2025 5:52 PM CDT [facility] Comment: INCREASED RISK OF DIABETES <5.7% NON-DIABETES 5.7-6.4% INCREASED RISK FOR FUTURE DIABETES > OR = 6.5 CONSISTENT WITH DIABETES STANDARDS OF MEDICAL CARE IN DIABETES-2010 DIABETES CARE, 33(SUPP 1): S1-S61,2009 ESTIMATED AVG GLUCOSE 91 mg/dL 02/19/2025 5:52 PM CDT [facility] 02/19/2025 4:04 PM CDT Lrary Adams MARKETING REP LABORATORY Final Result [facility] [address] [place] [address], [place] [phone] * VITAMIN B-12 (02/19/2025 4:04 PM CDT) VITAMIN B12 S/P/B 354 193 - 986 PG/ML 02/19/2025 6:12 PM CDT [facility] 02/19/2025 4:04 PM CDT Larry Adams MARKETING REP LABORATORY Final Result Performing Organization Address [facility]/ZIP Co de Phone Number [facility] [address] [place] [address], [place] [phone] * (ABNORMAL) LIPID PANEL (02/19/2025 4:04 PM CDT) CHOLESTEROL 200(H) <200.0 MG/DL 02/19/2025 5:56 PM CDT [facility] TRIGLYCERIDES 55 <150 MG/DL 02/19/2025 5:56 PM CDT [facility] HDL 86 >40.0 MG/DL 02/19/2025 5:56 PM CDT [facility] LDL (CALCULATED) 103(H) <100 MG/DL 02/19/2025 5:56 PM CDT [facility] Comment:CALCULATED USING THE FRIEDEWALD EQUATION NON HDL CHOLESTEROL 114 <130 MG/DL 02/19/2025 5:56 PM CDT [facility] CHOL/HDL RATIO 2.3 0.0 - 4.5 02/19/2025 5:56 PM CDT [facility] VLDL CALCULATION 11 5 - 55 MG/DL 02/19/2025 5:56 PM CDT [facility] LIPID INTERPRETATION 02/19/2025 5:56 PM CDT [facility] Comment: [facility] REPORT RECOMMENDATIONS: ADULT CHILD LOW RISK: CHOLESTEROL <200 <170 TRIGLYCERIDE <150 --- HDL >=60 --- LDL <100 <110 BORDERLINE: CHOLESTEROL 200-239 170-199 TRIGLYCERIDE 150-199 --- HDL 40-59 --- LDL 100-159 110-129 HIGH RISK: CHOLESTEROL >=240 >=200 TRIGLYCERIDE >=200 --- HDL <40 --- LDL >=160 >=130 02/19/2025 4:04 PM CDT Larry Adams MARKETING REP LABORATORY Final Result Performing Organization Address [facility]/ZIP Co de Phone Number [facility] [address] [place] [address], [place] [phone] * LH, LUTEINIZING HORMONE (02/19/2025 4:04 PM CDT) Luteinizing Hormone 21.4 MIU/ML 02/19/2025 8:03 PM CDT [facility] Comment: REFERENCE RANGES FOR FEMALES: FOLLICULAR 2.4-12.6 MID-CYCLE 14.0-95.6 LUTEAL 1.0-11.4 POSTMENOPAUSAL 7.7-58.5 02/19/2025 4:04 PM CDT Larry Adams MARKETING REP LABORATORY Final Result Performing Organization Address [facility]/ZIP Co de Phone Number [facility] [address] [place] [address], [place] [phone] * FSH, FOLLICLE STIM HORMONE (02/19/2025 4:04 PM CDT) FSH 78.5 MIU/ML 02/19/2025 9:45 PM CDT [facility] Comment: REFERENCE RANGES FOR FEMALES: FOLLICULAR 3.5-12.5 MID-CYCLE 4.7-21.5 LUTEAL 1.7-7.7 POSTMENOPAUSAL 25.8-134.8 02/19/2025 4:04 PM CDT Larry Roxie Adams MARKETING REP LABORATORY Final Result Performing Organization Address [facility] Co de Phone Number [facility] [address] [place] [address], [place] [phone] * ESTRADIOL (02/19/2025 4:04 PM CDT) ESTRADIOL <11 PG/ML 02/20/2025 4:41 PM CDT [facility] Comment: AGE 0 TO 10 YEARS: <11 TO 20 pg/mL FOLLIC PHASE: 21 TO 165 pg/mL MID CYCLE: 50 TO 367 pg/mL LUTEAL PHASE: 40 TO 259 pg/mL POST MENOPAUSAL NOT ON HRT: <11 TO 58 pg/mL POST MENOPAUSAL ON HRT: <11 TO 462 pg/mL ASSAY PERFORMED BY CHEMILUMINESCENCE METHODOLOGY USING SIEMENS [employer] [facility]. PATIENT RESULTS DETERMINED BY ASSAYS USING DIFFERENT MANUFACTURERS FOR METHODS MAY NOT BE COMPARABLE. 02/19/2025 4:04 PM CDT Larry Roxie Adams MARKETING REP LABORATORY Final Result Performing Organization Address [facility] Co de Phone Number [facility] [address] [place] [address], [place] [phone] * TESTOSTERONE, TOTAL (02/19/2025 4:04 PM CDT) TESTOSTERONE TOTAL 8 2 - 45 ng/dL 02/22/2025 1:21 PM CDT [facility] Comment: For additional information, please refer to http://education.[email or web address] Nextel.EagerPanda/faq/ [email or web address] (This link is being provided for informational/ educational purposes only.) This test was developed and its analytical performance characteristics have been determined by [facility] [place], [place]. It has not been cleared or approved by the U.S. Food and Drug Administration. This assay has been validated pursuant to the CLIA regulations and is used for clinical purposes. Test Performed by [facility], [facility] [place], [address] [place], [place] Brendan Adan M.D., Ph.D., Director of Laboratories , CLIA [id number] 02/19/2025 4:04 PM CDT Larry Adams MARKETING REP LABORATORY Final Result Performing Organization Address [facility]/ZIP Co de Phone Number [facility] [address] , [place] [phone] * PROGESTERONE (02/19/2025 4:04 PM CDT) PROGESTERONE <0.2 NG/ML 02/20/2025 4:41 PM CDT [facility] Comment: FOLLIC PHASE: 0.2 TO 1.7 ng/mL LUTEAL PHASE: 2.3 TO 24.2 ng/mL POST MENAPAUSAL: <0.2 TO 0.9 ng/mL 1ST TRIMESTER: 11.4 TO 41.0 ng/mL 2ND TRIMESTER: 13.9 TO 156.0 ng/mL 3RD TRIMESTER: 51.4 TO >200.0 ASSAY PERFORMED BY CHEMILUMINESCENCE METHODOLOGY USING SIEMENS [employer]. PATIENT RESULTS DETERMINED BY ASSAYS USING DIFFERENT MANUFACTURERS FOR METHODS MAY NOT BE COMPARABLE. 02/19/2025 4:04 PM CDT Larry Adams MARKETING REP LABORATORY Final Result Performing Organization Address [facility]/ZIP Co de Phone Number [facility] [address] [place] [address], [place] [phone] * (ABNORMAL) VITAMIN D, 25 OH (02/19/2025 4:04 PM CDT) VITAMIN D 25 HYDROXY S/P/B 109(H) 30 - 100 NG/ML 02/19/2025 6:05 PM CDT [facility] Comment: INTERPRETATION DEFICIENT <20 INSUFFICIENT 20-29 SUFFICIENT 30-100 02/19/2025 4:04 PM CDT Larry Adams MARKETING REP LABORATORY Final Result [facility] [address] [place] [phone], * (ABNORMAL) MG/PCCL UDS W CONF (02/19/2025 3:59 PM CDT) Pathologist [facility] RESULT SUMMARY [facility] Comment: Prescribed Prescribed Not Prescribed Consistent Inconsistent Inconsistent Xanax(TM) PRESCRIBED DRUG 1 (U) Xanax(TM) [facility] FENTANYL SCREEN (U) NEGATIVE <0.5 ng/mL [facility] MORPHINE (U) NEGATIVE <10 ng/mL [facility] DESMETHYLTRAMADOL (U) NEGATIVE <100 ng/mL [facility] [place] TRAMADOL (U) NEGATIVE <100 ng/mL [facility] TRAMADOL COMMENTS [facility] Comment:See LDT Notes AMPHETAMINES PM NEGATIVE <500 ng/mL [facility] BARBITURATES PM (U) NEGATIVE <300 ng/mL [facility] BENZODIAZEPINES PM (U) POSITIVE(A) <100 ng/mL [facility] ALPHAHYDROXYALPRAZOLAM PM (U) 352(H) <25 ng/mL [facility] ALPHAHYDROXYALPRAZOLAM PM MEDMATCH (U) CONSISTENT [facility] MIDAZOLAM PM (U) NEGATIVE <50 ng/mL [facility] ALPHAHYDROXYTRIAZOLAM PM (U) NEGATIVE <50 ng/mL [facility] AMINOCLONAZEPAM PM (U) NEGATIVE <25 ng/mL [facility] OH ET FLURAZEPAM PM (U) NEGATIVE <50 ng/mL [facility] LORAZEPAM PM (U) NEGATIVE <50 ng/mL [facility] NORDIAZEPAM PM (U) NEGATIVE <50 ng/mL [facility] OXAZEPAM PM (U) NEGATIVE <50 ng/mL [facility] TEMAZEPAM PM NEGATIVE <50 ng/mL [facility] BENZODIAZEPINES COMMENTS [facility] Comment:See Benzodiazepines Notes, LDT Notes COCAINE METABOLITE PM (U) NEGATIVE <150 ng/mL [facility] MARIJUANA METABOLITE PM (U) NEGATIVE <20 ng/mL [facility] METHADONE PM (U) NEGATIVE <100 ng/mL [facility] OPIATES PM (U) NEGATIVE <100 ng/mL [facility] OXYCODONE PM (U) NEGATIVE <100 ng/mL [facility] CREATININE RANDOM (U) 145.0 > or = 20.0 mg/dL [facility] [employer] [facility] pH PM (U) 5.4 4.5 - 9.0 [facility] OXIDANT NEGATIVE <200 mcg/mL [facility] NOTE [facility] Comment: This drug testing is for medical treatment only. Analysis was performed as non-forensic testing and these results should be used only by healthcare providers to render diagnosis or treatment, or to monitor progress of medical conditions. Benzodiazepines Notes: aOH Alprazolam detected is consistent with the use of the drug Alprazolam. LDT Notes: Confirmation tests were developed and their analytical performance characteristics have been determined by [facility]. It has not been cleared or approved by the FDA. This assay has been validated pursuant to the CLIA regulations and is used for clinical purposes. medMATCH(R) enables providers to identify if drug use is consistent or inconsistent with a corresponding prescribed medication(s) list. Healthcare Providers needing Interpretation assistance, please contact us at [phone] ( ) M-F, 8am to 10pm EST URINE SPECIMEN / Unknown 02/19/2025 3:59 PM CDT 02/20/2025 4:43 AM CDT Narrative Resulting Agency Comment Performing Organization Information: Site ID: [id number] Name: [facility] Address: [address] [place] [address] Director: Cory Felix Site ID: [id number] Name: [facility] Address: [address] [place] [address] Director: Debo Griffin MD Larry Adams MARKETING REP URINE ORDERABLES Final Result [facility] [address] [place] [address], [facility] [place] [facility] [address] [place] [address] * COMPREHENSIVE METABOLIC PANEL (01/30/2025 10:14 AM CDT) GLUCOSE 83 70 - 99 MG/DL 01/30/2025 1:20 PM CDT [facility] BUN 10 7 - 18 MG/DL 01/30/2025 1:20 PM CDT [facility] CREATININE S/P/B 0.74 0.55 - 1.02 MG/DL 01/30/2025 1:20 PM CDT [facility] SODIUM S/P/B 140 136 - 145 MMOL/L 01/30/2025 1:20 PM CDT [facility] POTASSIUM S/P/B 4.0 3.5 - 5.1 MMOL/L 01/30/2025 1:20 PM CDT [facility] CHLORIDE S/P/B 105 100 - 108 MMOL/L 01/30/2025 1:20 PM CDT [facility] CO2 25.5 21 - 32 MMOL/L 01/30/2025 1:20 PM CDT [facility] CALCIUM S/P/B 9.1 8.5 - 10.1 MG/DL 01/30/2025 1:20 PM T [facility] BILIRUBIN TOTAL S/P/B 0.4 0.2 - 1.2 MG/DL 01/30/2025 1:20 PM [facility] TOTAL PROTEIN S/P/B 6.4 6.4 - 8.2 G/DL 01/30/2025 1:20 PM [facility] ALBUMIN S/P/B 3.9 3.4 - 5.0 G/DL 01/30/2025 1:20 PM [facility] AST 21 15 - 37 U/L 01/30/2025 1:20 PM [facility] ALT 33 14 - 55 U/L 01/30/2025 1:20 PM [facility] ALKALINE PHOSPHATASE S/P/B 74 50 - 136 U/L 01/30/2025 1:20 PM [facility] ANION GAP 9.5 5 - 15 MMOL/L 01/30/2025 1:20 PM [facility] BUN CREATININE RATIO 13.5 6 - 26 01/30/2025 1:20 PM [facility] A/G RATIO 1.6 1.0 - 2.0 RATIO 01/30/2025 1:20 PM [facility] GFR ESTIMATE >90 >90 ML/MIN/1.7 3 M2 01/30/2025 1:20 PM [facility] Comment: NOTE: eGFR is not calculated for patients <18 years of age. This is an estimated GFR calculation using the new CKD EPI creatinine equation without race and so does not require a correction factor for race. This estimated GFR should not be used for calculating drug doses. 01/30/2025 10:1 4 AM CDT us Fredrick Alberts MD LABORATORY Final Resul t [facility] [address] [place] [address], * (ABNORMAL) CBC W/DIFF AUTOMATED (01/30/2025 10:14 AM CDT) WBC 5.44 4.4 - 11.0 x10'3/uL 01/30/2025 1:01 PM CDT [facility] RBC 4.19(L) 4.50 - 5.10 x10'6/uL 01/30/2025 1:01 PM CDT [facility] HGB 13.3 12.3 - 15.3 G/DL 01/30/2025 1:01 PM CDT [facility] HCT 39.8 35.9 - 44.6 % 01/30/2025 1:01 PM CDT [facility] MCV 95.0 80.0 - 96.0 FL 01/30/2025 1:01 PM CDT [facility] MCH 31.7(H) 25.3 - 30.9 PG 01/30/2025 1:01 PM CDT [facility] MCHC 33.4 31.0 - 34.1 G/DL 01/30/2025 1:01 PM CDT [facility] RDW 12.3(L) 12.4 - 15.1 % 01/30/2025 1:01 PM CDT [facility] PLT 225 151 - 353 x10'3/uL 01/30/2025 1:01 PM T [facility] MPV 10.1 9.6 - 12.0 FL 01/30/2025 1:01 PM CDT [facility] RBC MORPHOLOGY NORMAL 01/30/2025 1:01 PM CDT [facility] PLT MORPH. NORMAL 01/30/2025 1:01 PM CDT [facility] WBC MORPHOLOGY NORMAL 01/30/2025 1:01 PM CDT [facility] LYMPHOCYTES % 39.0 15.8 - 45.0 % 01/30/2025 1:01 PM CDT [facility] NEUTROPHILS % 52.8 42.1 - 71.9 % 01/30/2025 1:01 PM CDT [facility] MONOCYTES % 6.6 5.7 - 12.5 % 01/30/2025 1:01 PM CDT [facility] EOSINOPHILS 0.7 0.0 - 5.6 % 01/30/2025 1:01 PM CDT [facility] BASOPHILS 0.7 0.0 - 1.3 % 01/30/2025 1:01 PM CDT [facility] ABS. NEUTROPHILS 2.87 1.40 - 6.00 x10'3/uL 01/30/2025 1:01 PM CDT [facility] IMMATURE GRANS % 0.2 0.0 - 0.5 % 01/30/2025 1:01 PM CDT [facility] ABS. LYMPHOCYTES 2.12 0.80 - 4.70 x10'3/uL 01/30/2025 1:01 PM CDT [facility] 01/30/2025 10:1 4 AM CDT us Fredrick Alberts MD LABORATORY Final Resul t [facility] [address] [place] [address], * GI PANEL PCR - STOOL (01/30/2025 10:00 AM CDT) CAMPYLOBACTER PCR (STOOL) NOT DETECTED NOT DETECTED 01/30/2025 3:38 PM CDT [facility] PLESIOMONAS SHIGELLOIDES PCR (STOOL) NOT DETECTED NOT DETECTED 01/30/2025 3:38 PM CDT [facility] SALMONELLA PCR (STOOL) NOT DETECTED NOT DETECTED 01/30/2025 3:38 PM CDT [facility] VIBRIO PCR (STOOL) NOT DETECTED NOT DETECTED 01/30/2025 3:38 PM CDT [facility] VIBRIO CHOLERAE PCR (STOOL) NOT DETECTED NOT DETECTED 01/30/2025 3:38 PM CDT [facility] YERSINIA ENTEROCOLITICA PCR (STOOL) NOT DETECTED NOT DETECTED 01/30/2025 3:38 PM CDT [facility] ENTEROAGGREGATIVE ECOLI PCR (STOOL) NOT DETECTED NOT DETECTED 01/30/2025 3:38 PM CDT [facility] ENTEROPATHOGENIC ECOLI PCR (STOOL) NOT DETECTED NOT DETECTED 01/30/2025 3:38 PM CDT [facility] ENTEROTOXIGENIC ECOLI PCR (STOOL) NOT DETECTED NOT DETECTED 01/30/2025 3:38 PM CDT [facility] SHIGA LIKE TOXIN ECOLI PCR (STOOL) NOT DETECTED NOT DETECTED 01/30/2025 3:38 PM CDT [facility] SHIG/ENTEROINVASIVE ECOLI PCR (STOOL) NOT DETECTED NOT DETECTED 01/30/2025 3:38 PM CDT [facility] CRYPTOSPORIDIUM PCR (STOOL) NOT DETECTED NOT DETECTED 01/30/2025 3:38 PM CDT [facility] CYCLOSPORA CAYETANENSIS PCR (STOOL) NOT DETECTED NOT DETECTED 01/30/2025 3:38 PM CDT [facility] ENTAMOEBA HISTOLYTICA PCR (STOOL) NOT DETECTED NOT DETECTED 01/30/2025 3:38 PM CDT [facility] GIARDIA LAMBLIA PCR (STOOL) NOT DETECTED NOT DETECTED 01/30/2025 3:38 PM CDT [facility] ADENOVIRUS F40/41 PCR (STOOL) NOT DETECTED NOT DETECTED 01/30/2025 3:38 PM CDT [facility] ASTROVIRUS PCR (STOOL) NOT DETECTED NOT DETECTED 01/30/2025 3:38 PM CDT [facility] NOROVIRUS GI/GII PCR (STOOL) NOT DETECTED NOT DETECTED 01/30/2025 3:38 PM CDT [facility] ROTAVIRUS A PCR (STOOL) NOT DETECTED NOT DETECTED 01/30/2025 3:38 PM CDT [facility] SAPOVIRUS PCR (STOOL) NOT DETECTED NOT DETECTED 01/30/2025 3:38 PM CDT [facility] STOOL SPECIMEN / Unknown 01/30/2025 10:00 AM CDT Fredrick Alberts MD MICROBIOLOGY - GENERAL CROPWELLEnoc [facility] Final Result [facility] [address] [place] [address], from Last 3 Months Insurance [facility] Care Teams Tea Plantation Worker Relationship Specialty [place] [address] [facility] [place] [address] PCP - General FAMILY PRACTICE 09/27/23
--- OUTSIDE RECORDS SUMMARY | 2025-03-07 13:16 | XMS_ITS | Encounter Summary ---
Author Organization [facility] Address [address] [place] [address] Care Team Providers Care Bass Mechanism Maker Name Role Phone Fredrick Alberts MD Primary Care Provider [phone] Encounter Details Date Type Department Care Team (Late st Contact Info) Description 09/04/2024 Therapy Plan [facility] [address] [place] [address] [place] [address] [place] [address] Social History Tobacco Use Types Packs/Day Years [...] Sex Assigned at Female 09/08/2024 8:07 AM REGIONAL ENGAGEMENT CONSULTANT Legal Sex Female 5:06 PM CDT Gender Identity Not on file Sexual Orientation Not on file documented as of this encounter Plan of Treatment Upcoming Encounters Date Type Department Care Team (Late st Contact Info) Description 03/19/2025 9:30 AM CDT Office Visit [facility] Medical Group Family & Internal Medicine [facility] [address] [place] [address] [place] [address] [address] 04/04/2025 10:40 AM CDT Office Visit [facility] Medical [facility] [place] [address] [place] [address] [place] [address] [place] [address] Christine Alberts NP [address] [address] documented as of this encounter Visit Diagnoses Diagnosis Vitamin B12 deficiency- Primary Other B-complex deficiencies documented in this encounter Care Teams Bass Mechanism Maker Relationship Specialty [place] [address] [place], [place] [id number] PCP - General FAMILY PRACTICE 09/27/23 documented as of this encounter
--- OUTSIDE RECORDS SUMMARY | 2025-03-07 13:16 | XMS_ITS | Encounter Summary ---
Author Organization [facility] Address [address] [place] [address] Care Team Providers Care Ground Transportation Operator Name Role Phone Fredrick Alberts MD Primary Care Provider [phone] Encounter Details Date Type Department Care Team (Late st Contact Info) Description 02/24/2024 Hospital Orders Only [facility] [address] [place] [address] Halley Hackett, TOMOGRAPHY TECHNOLOGIST Social History Tobacco Use Types Packs/Day Years [...] Sex Assigned at Female 09/08/2024 8:07 AM MIXING OPERATOR Legal Sex Female 5:06 PM CDT Gender Identity Not on file Sexual Orientation Not on file documented as of this encounter Plan of Treatment Upcoming Encounters Date Type Department Care Team (Late st Contact Info) Description 03/19/2025 9:30 AM CDT Office Visit [facility] Medical Group Family & Internal Medicine [address] [address] Isadora Adams, FLOOR WORKER [address] [address] 04/04/2025 10:40 AM CDT Office Visit [facility] Medical [facility] [place] [address] [place] [address] [place] [address] [place] [address] Christine Alberts, SHARLENE [address] [address] documented as of this encounter Visit Diagnoses Not on filedocumented in this encounter Care Teams Ground Transportation Operator Relationship Specialty [place] [address] [place] [address] PCP - General FAMILY PRACTICE 09/27/23 documented as of this encounter
--- OUTSIDE RECORDS SUMMARY | 2025-03-07 13:16 | XMS_ITS ---
Author Organization [facility] Address [address] [place] [address] Care Team Providers Care Regional Ehs Manager Name Role Phone Rodrick Hernández MD Unavailable [phone] Fredrick Alberts MD Primary Care Provider [phone] Romero CORRALES MD, Dell Ye Unavailable [phone] Active Problems Problem Noted Date Diagnosed Date Deviated nasal septum 04/19/2024 Hypertrophy of nasal turbinates 04/19/2024 Chronic maxillary sinusitis 04/19/2024 Chronic sphenoidal sinusitis 03/21/2024 Dysfunction of both eustachian tubes 03/21/2024 Iron deficiency anemia 03/29/2020 Status post left hip replacement 06/15/2019 Hypogammaglobulinemia 07/03/2015 Anemia 02/29/2012 Adenocarcinoma of cervix 02/29/2012 Current Treatment and Therapy Plans No current plan information found. Past Treatment and Therapy Plans
--- OUTSIDE RECORDS SUMMARY | 2025-03-07 13:16 | XMS_ITS | Patient Health Record ---
Author Organization [facility] [employer] [facility] Address [address] [facility] [address] [place] [address] Care Team Providers Care Isotope Hydrologist Name Role Phone Aristeo EM, Fredrick Primary Care Provider Jay Sen Unavailable [phone] Reason For Referral No Information Medications Medication SIG (Take, Route, Frequency, Duration) Notes Start Date End Date Status traZODone HCl 100 MG Oral 11/16/2023 Active Cyanocobalamin 1000 MCG/ML Injection 11/16/2023 Active traZODone HCl 300 MG Oral 11/16/2023 Active Ergocalciferol 1.25 MG (88539 [place]) Oral 11/16/2023 Active Levothyroxine Sodium 75 MCG Oral 11/16/2023 Active ALPRAZolam 2 MG Oral 11/16/2023 Act wandy Social History Sex Assigned At : Social History Observation Description Sex Assigned At Female Plan Of Treatment No Information Insurance Providers Payer Name Payer Address Payer Phone Subscriber Number Group Number Insured Name Patient Relationship to Insured Coverage Start Date Coverage End Date [employer] Medicare Replacement/ Advantage - Ppo [address] [address] [place] [address] [id number] RAKEL RIVAS Self - patient is the insured Medical (General) History Surgical History Surgery Date(Month/Year) Hysterectomy (31460) 08/16/2008 Any surgical history 08/16/2009 Other 08/16/2011 Removal of gallbladder (17792) 8
--- OUTSIDE RECORDS SUMMARY | 2025-03-07 13:16 | XMS_ITS | Encounter Summary ---
Author Organization [facility] Address [address] [place] [address] Care Team Providers Care Data Processing Manager Name Role Phone Fredrick Alberts MD Primary Care Provider [phone] Encounter Details Date Type Department Care Team (Late Contact Info) Description 05/01/2024 [facility] Patient Accounts [address] [place] [address] [facility] Account Adjustment Social History Tobacco Use Types Packs/Day Years [...] Sex Assigned at Female 09/08/2024 8:07 AM TANKAGE GRINDER Legal Sex Female 5:06 PM CDT Gender Identity Not on file Sexual Orientation Not on file documented as of this encounter Plan of Treatment Upcoming Encounters Date Type Department Care Team (Late Contact Info) Description 03/19/2025 9:30 AM CDT Office Visit [facility] Medical Group Family & Internal Medicine [address] [address] Isadora Adams, AGRIBUSINESS INTERNSHIP [address] [place] [address] 04/04/2025 10:40 AM CDT Office Visit [facility] [place] [address] [place] [address] [place] [address] [place] [address] Christine Alberts, SHARLENE [address] [address] documented as of this encounter Visit Diagnoses Not on filedocumented in this encounter Care Teams Data Processing Manager Relationship Specialty [place] [address] [place] [address] PCP - General FAMILY PRACTICE 09/27/23 documented as of this encounter
--- OUTSIDE RECORDS SUMMARY | 2025-03-07 13:16 | XMS_ITS | Clinical Summary ---
Author Organization [facility] Address [address] [place] [address] Care Team Providers Care Locker Room Manager Name Role Phone Rodrick Hernández MD Unavailable [phone] Fredrick Alberts MD Primary Care Provider [phone] Romero CORRALES MD, Dell Ye Unavailable [phone] Allergies Active Allergy Reactions Criticality Noted Date [...] 1 tablet (100 mcg total) by mouth oil lease operator before breakfast 0 Active Nurtec ODT tablet,disinteg [...] 13 10/20/2016 Tdap 06/08/2017 ZOSTER LIVE 09/03/2016 Surgical History Surgery Date Site/Laterality Comments ELBOW SURGERY Left W/ HARDWARE TX TOTAL ABDOMINAL HYSTERECT W/WO RMVL TUBE OVARY 08/16/2009 - 08/15/2010 Hysterectomy - (Added by TW Conv) SECTION 3x CHOLECYSTECTOMY 08/16/2006 - 08/15/2007 LASIK 08/16/2009 - 08/15/2010 TOTAL HIP ARTHROPLASTY 08/16/2016 - 08/15/2017 Left GASTRIC BYPASS 08/16/2000 - 08/15/2001 KNEE ARTHROPLASTY 08/16/2009 - 08/15/2010 Left TUBAL LIGATION 08/16/1997 - 08/15/1998 NASAL SEPTOPLASTY W/ TURBINOPLASTY 04/26/2024 septoplasty, left inferior turbinate reduction and left endoscopic maxillary antrostomy with tissue removal done 04/26/24 Medical History Medical History Date Comments Sinusitis Cancer (HCC) CERVICAL CANCER Anxiety Depression Thyroid disease Migraine Murmur, cardiac Family History Medical History Relation Name Comments Cancer Maternal Grandmother Relation Name Status Comments Maternal Grandmother Social History Tobacco Use Types Packs/Day Years [...] on file Legal Sex Female 12:51 PM DRY PRESS OPERATOR HELPER Gender Identity Not on file Sexual Orientation Not on file Obstetrics History Last Filed Vital Signs Vital Sign Reading [...] 05/16/2024 11:22 AM CDT Plan of Treatment Health Maintenance Due Date Last Done Comments Breast Cancer Screening-Mammogram 1965 Colon Cancer Screening-Colonoscopy 1965 Depression Screening 1965 Hepatitis C Screening 1965 Hepatitis B Screening 11/28/1983 Regular Well Visit/Exam 18-64 11/28/1983 Influenza Vaccine (Season Ended) 2025 05/05/2023, 05/04/2022, 05/24/2021, Additional history exists DTaP/Tdap/Td Vaccine (3 - Td or Tdap) 09/01/2032 09/01/2022, 06/08/2017 Pneumococcal vaccine <65 Aged Out 10/20/2016 No longer eligible based on patient's age to complete this topic Zoster Vaccine Completed 10/19/2022, 07/16, 09/03/2016 Medical Devices Implanted Type Area Concession Cashier Device Identifier Shelf Expiration Date Model / Serial / Lot Plate (X2) Plate Left: Arm Screw (X24) Screw Left: Arm Hip Left: Hip Left Knee Replacement Left: Knee Insurance [facility] MEDICARE ADVANTAGE Member Subscriber Plan / Payer (Ef fective 2023-Present) Name:Laine Griggs Relation to Subscriber:Self Name:Laine Griggs Payer ID:[id number] (NAIC) Type:[facility] MEDICARE Address: [place] [id number] UHC MEDICARE ADVANTAGE Member Subscriber Plan / Payer (Ef fective 2023-Present) Name:Laine Griggs Relation to Subscriber:Self Name:Laine Griggs Payer ID:[id number] (NAIC) Type:[facility] MEDICARE Address: [place] [phone] Care Teams Locker Room Manager Relationship Specialty [place] [address] [place] [address] PCP - General Family Practice 03/13/24 Rodrick Hernández MD Medical Oncologist/Window Glazier Hematology and Oncology 04/09/20 Dell Jasso II, MD [address] [place] [address] Consulting Physician Otolaryngology 04/26/24
--- OUTSIDE RECORDS SUMMARY | 2025-03-07 13:16 | XMS_ITS | Encounter Summary ---
Author Organization [facility] Address [address] [place] [address] Care Team Providers Care Terrazzo Worker Apprentice Name Role Phone Fredrick Alberts MD Primary Care Provider [phone] Encounter Details Date Type Department Care Team (Late st Contact Info) Description 07/26/2024 pocketvillaget Message Enc [facility] Family & Internal [address] [address] Lauren, [facility] Provider Due for appt Social History Tobacco Use Types Packs/Day Years [...] Sex Assigned at Female 09/08/2024 8:07 AM RAILWAY ENGINEER Legal Sex Female 5:06 PM CDT Gender Identity Not on file Sexual Orientation Not on file documented as of this encounter Plan of Treatment Upcoming Encounters Date Type Department Care Team (Late st Contact Info) Description 03/19/2025 9:30 AM CDT Office Visit [facility] Family & Internal [facility] [address] [place] [address] [place] [address] [facility] [address] [address] 04/04/2025 10:40 AM CDT Office Visit [facility] [place] [address] [place] [phone] [place] [address] [place] [address] Christine Alberts, SHARLENE 3 [facility] [address] [place] [address] documented as of this encounter Visit Diagnoses Not on filedocumented in this encounter Care Teams Terrazzo Worker Apprentice Relationship Specialty [place] [address] [place] [address] PCP - General FAMILY PRACTICE 09/27/23 documented as of this encounter
--- OUTSIDE RECORDS SUMMARY | 2025-03-07 13:16 | XMS_ITS ---
Author Organization [facility] Address [address] [place] [address] Care Team Providers Care Dementia Program Director Name Role Phone Fredrick Alberts MD Primary Care Provider [phone] Active Problems Problem Noted Date Diagnosed Date Bipolar 2 disorder ([facility]) 02/20/2025 TJ (generalized anxiety disorder) 02/20/2025 Medication [...] recurrent major depressive disorder, without psychotic features ([facility]) 09/26/2018 Hypogammaglobulinemia ([facility]) 07/03/2015 Adenocarcinoma of cervix ([facility]) 02/28 Anemia 02/29/2012 Current Treatment and Therapy Plans No current plan information found. Past Treatment and Therapy Plans
--- OUTSIDE RECORDS SUMMARY | 2025-03-07 13:16 | XMS_ITS | Encounter Summary ---
Author Organization [facility] Address [address] [place] [address] Care Team Providers Care Associate Consulting Engineer Name Role Phone Fredrick Alberts MD Primary Care Provider [phone] Encounter Details Date Type Department Care Team (Late Contact Info) Description 03/06/2025 MyChart Message Enc [facility] Family & Internal [address] [address] [place] [address] [place] [address] [address] [address] Martines's office Social History Tobacco Use Types Packs/Day Years [...] Sex Assigned at Female 09/08/2024 8:07 AM BOILER TECHNICIAN Legal Sex Female 5:06 PM CDT Gender Identity Not on file Sexual Orientation Not on file documented as of this encounter Plan of Treatment Upcoming Encounters Date Type Department Care Team (Late Contact Info) Description 03/19/2025 9:30 AM CDT Office Visit [facility] [address] [place] [address] Isad[place] Adams [place] [address] [place], [place] [address] [address] 04/04/2025 10:40 AM CDT Office Visit [facility] Medical Group G[facility]ology [facility]ty [facility] [place] [address] [place] [address] [place] [address] [place] [address] Christine Alberts NP 3 [facility] [address] [place] [address] documented as of this encounter Visit Diagnoses Not on filedocumented in this encounter Additional Health Concerns Assessment Noted Time PHQ-9 Depression Total Score: 23 025 12:00 PM CDT documented as of this encounter Care Teams Associate Consulting Engineer Relationship Specialty [place] [address] [place] [address] PCP - General FAMILY PRACTICE 09/27/23 documented as of this encounter
--- OUTSIDE RECORDS SUMMARY | 2025-03-07 13:16 | XMS_ITS | Encounter Summary ---
Author Organization [facility] Address [address] [place] [address] Care Team Providers Care Olive Brine Tester Name Role Phone Fredrick Alberts MD Primary Care Provider [phone] Encounter Details Date Type Department Care Team (Late st Contact Info) Description 02/20/2025 Results Follow-Up [facility] Family & Internal Medicine [facility] [address] [place] [address] [place] [address] [place] [address] [phone] LH, LUTEINIZING HORMONE, FSH, FOLLICLE STIM HORMONE, HEMOGLOBIN, GLYCOSYLATED, Additional followed-up results: 8 Social History Tobacco Use Types Packs/Day Years Used Date Smoking Tobacco: Former Cigarettes Q uit: 08/16/2012 Smokeless Tobacco: Never Alcohol Use Standard Drinks/Week Comments Not Currently 0 (1 standard drink = 0.6 oz pur e alcohol) recoving alcholic PHQ-2 Answer Date Recorded Patient Health Questionnaire-2 Score 6 02/20/2025 Comments No Sex and Gender Information Value Date Recorded Sex Assigned at Female 09/08/2024 8:07 AM CITY DISTRIBUTION CLERK Legal Sex Female 5:06 PM CDT Gender Identity Not on file Sexual Orientation Not on file documented as of this encounter Functional Status * Over the past 2 weeks, how often have you been bothered by any of the following problems? Question Answer Date of Assessment Author Status Little interest or pleasure in doing things Nearly every day 02/20/2025 9:05 AM CDT Isadora Adams NP Active Feeling down, depressed, or hopeless Nearly every day 02/20/2025 9:05 AM Isadora Manzo NP Active Patient Health Questionnaire-2 Score 6 02/20/2025 9:05 AM Isadora Manzo NP Active * Question Answer Date of Assessment Author Status Trouble falling or staying asleep, or sleeping too much More than half the days 02/20/2025 9:05 AM Isadora Manzo NP Active Feeling tired or having little energy Nearly every day 02/20/2025 9:05 AM Isadora Manzo NP Active Poor appetite or overeating Nearly every day 02/20/2025 9:05 AM Isadora Manzo NP Active Feeling bad about yourself - or that you are a failure or have let yourself or your family down Nearly every day 02/20/2025 9:05 AM Isadora Manzo NP Active Trouble concentrating on things, such as reading the newspaper or watching television Nearly every day 02/20/2025 9:05 AM Isadora Manzo NP Active Moving or speaking so slowly that other people could have noticed? Or the opposite - being so fidgety or restless that you have been moving around a lot more than usual. Nearly every day 02/20/2025 9:05 AM Isadora Manzo NP Active Thoughts that you would be better off or hurting yourself in some way Nearly every day 02/20/2025 9:05 AM Isadora Manzo NP Active Patient Health Questionnaire-9 Score 26 02/20/2025 9:05 AM Isadora Manzo NP Active * If you checked off any problems on this questionnaire so far, Question Answer Date of Assessment Author Status How difficult have these problems made it for you to do your work, take care of things at home, or get along with other people? Extremely difficult 02/20/2025 9:05 AM Isadora Manzo NP Active * Over the last 2 weeks, how often have you been bothered by any of the following problems? Question Answer Date of Assessment Author Status Feeling nervous, anxious, or on edge 3 02/20/2025 9:05 AM MACOT Ra kan Adams, EXECUTIVE DIRECTOR OF NURSING Active Not being able to stop or control worrying 3 02/20/2025 9:05 AM MACOT Ra kan Adams, EXECUTIVE DIRECTOR OF NURSING Active Worrying too much about different things 3 02/20/2025 9:05 AM MACOT Ra kan Adams, EXECUTIVE DIRECTOR OF NURSING Active Trouble relaxing 3 02/20/2025 9:05 AM CDT Isadora Gant NP Active Being so restless that it is hard to sit still 3 02/20/2025 9:05 AM MACOT Machelle Adams, EXECUTIVE DIRECTOR OF NURSING Active Becoming easily annoyed or irritable 3 02/20/2025 9:05 AM MACOT Ra kan Adams, EXECUTIVE DIRECTOR OF NURSING Active Feeling afraid as if something awful might happen 3 02/20/2025 9:05 AM Ra kan Manzo, EXECUTIVE DIRECTOR OF NURSING Active TJ-7 Total Score 21 02/20/2025 9:05 AM MACOT Isadora Adams NP Active documented as of this encounter Progress Notes * Isadora Adams NP - 02/22/2025 4:05 PM CDT Results are consistent with patient reported prescribed medication and denial of street drug use. No new orders. * Isadora Adams NP - 02/22/2025 1:56 PM CDT Results within normal limits. No new orders. * Isadora Adams NP - 02/21/2025 7:14 AM CDT Progesterone and estradiol within normal limits. No new orders. * Rossana Rosa LPN - 02/20/2025 7:56 AM CDT Pt called request that Dr. Mccoy review notes and approve stopping D2 supplement before she will stop taking please let pt know what to do documented in this encounter Plan of Treatment Upcoming Encounters Date Type Department Care Team (Late st Contact Info) Description 03/19/2025 9:30 AM CDT Office Visit [facility] Family & Internal Medicine [facility] [address] [place] [address] [place] [address] [id number] 04/04/2025 10:40 AM CDT Office Visit [facility]ty [facility] [place] [address] [place] [address] [place] [address] [place], [place] [phone] Christine Alberts NP 3 [facility] [address] [place] [address] documented as of this encounter Visit Diagnoses Not on filedocumented in this encounter Additional Health Concerns Assessment Noted Time PHQ-9 Depression Total Score: 26 025 9:05 AM CDT documented as of this encounter Care Teams Olive Brine Tester Relationship Specialty [place] [address] [place], [place] [phone] PCP - General FAMILY PRACTICE 09/27/23 documented as of this encounter
== END 2025-03-07 13:09 | disposition home or self-care (01) ==
PROVIDERS: PCP Family Medicine; Visit Provider Orthopaedic Surgery
DX: Z96.611 Presence of right artificial shoulder joint (principal)
CPT/HCPCS: 73030

== ENCOUNTER 2025-03-14 09:19 | Outpatient (CLI) | payer MEDICARE, SELFPAY ==
--- OUTSIDE RECORDS SUMMARY | 2025-03-14 09:40 | XMS_ITS ---
Author Organization [facility] Address [address] [place] [address] Care Team Providers Care Sort Worker Name Role Phone Fredrick Alberts MD Primary Care Provider [phone] Active Problems Problem Noted Date Diagnosed Date Bipolar 2 disorder ([facility]) 02/20/2025 TJ (generalized anxiety disorder) 02/20/2025 Medication [...] recurrent major depressive disorder, without psychotic features ([facility]) 09/26/2018 Hypogammaglobulinemia ([facility]) 07/03/2015 Adenocarcinoma of cervix ([facility]) 02/28 Anemia 02/29/2012 Current Treatment and Therapy Plans No current plan information found. Past Treatment and Therapy Plans
--- OUTSIDE RECORDS SUMMARY | 2025-03-14 09:40 | XMS_ITS | Encounter Summary ---
Author Organization [facility] Address [address] [place] [address] Care Team Providers Care Miller Head Wet Process Name Role Phone Fredrick Alberts MD Primary Care Provider [phone] Encounter Details Date Type Department Care Team (Late Contact Info) Description 03/06/2025 MyChart Message Enc [facility] Family & Internal [address] [address] Isadora Adams [place] [address] [place] [address] [address] [address] Martines's [...] Sex Assigned at Female 09/08/2024 8:07 AM FULFILLMENT ASSOCIATE Legal Sex Female 5:06 PM CDT Gender Identity Not on file Sexual Orientation Not on file documented as of this encounter Plan of Treatment Upcoming Encounters Date Type Department Care Team (Late Contact Info) Description 03/19/2025 9:30 AM CDT Office Visit [facility] Family Internal [facility] [address] [place] [address] Isadora Adams [place] [address] [place], [place] [address] [address] 04/04/2025 10:40 AM CDT Office Visit [facility]ty [facility] [place] [address] [place] [address] [place] [address] [place] [address] Christine Alberts NP 3 [facility] [address] [place] [address] documented as of this encounter Visit Diagnoses Not on filedocumented in this encounter Additional Health Concerns Assessment Noted Time PHQ-9 Depression Total Score: 23 025 12:00 PM CDT documented as of this encounter Care Teams Miller Head Wet Process Relationship Specialty [place] [address] [place] [address] PCP - General FAMILY PRACTICE 09/27/23 documented as of this encounter
--- OUTSIDE RECORDS SUMMARY | 2025-03-14 09:40 | XMS_ITS ---
Author Organization [facility] Address [address] [place] [address] Care Team Providers Care Sand Mixer Name Role Phone Rodrick Hernández MD Unavailable [phone] Fredrick Alberts MD Primary Care Provider [phone] Romero CORRALES MD, Dell Ye Unavailable [phone] Active Problems Problem Noted Date Diagnosed Date [...]
--- OUTSIDE RECORDS SUMMARY | 2025-03-14 09:40 | XMS_ITS | Encounter Summary ---
Author Organization [facility] Address [address] [place] [address] Care Team Providers Care Sales Research Analyst Name Role Phone Fredrick Alberts MD Primary Care Provider [phone] Encounter Details Date Type Department Care Team (Late st Contact Info) Description 02/24/2024 Hospital Orders Only [facility] Outpatient Rehab [address] [place] [address] Halley Hackett, IT QUALITY ASSURANCE ANALYST Social History Tobacco Use Types Packs/Day Years [...] Sex Assigned at Female 09/08/2024 8:07 AM GUIDEMAN Legal Sex Female 5:06 PM CDT Gender Identity Not on file Sexual Orientation Not on file documented as of this encounter Plan of Treatment Upcoming Encounters Date Type Department Care Team (Late st Contact Info) Description 03/19/2025 9:30 AM CDT Office Visit [facility] Family & Internal Medicine [address] [address] Isadora Adams, EXCHANGE UNDERWRITING CONSULTANT [address] [address] 04/04/2025 10:40 AM CDT Office Visit [facility]ty [facility] [place] [address] [place] [address] [place] [address] [place] [address] Christine Alberts, SHARLENE [address] [address] documented as of this encounter Visit Diagnoses Not on filedocumented in this encounter Care Teams Sales Research Analyst Relationship Specialty [place] [address] [place] [address] PCP - General FAMILY PRACTICE 09/27/23 documented as of this encounter
--- OUTSIDE RECORDS SUMMARY | 2025-03-14 09:40 | XMS_ITS | Encounter Summary ---
Author Organization [facility] Address [address] [place] [address] Care Team Providers Care Slasher Tender Helper Name Role Phone Fredrick Alberts MD Primary Care Provider [phone] Encounter Details Date Type Department Care Team (Late st Contact Info) Description 02/20/2025 Results Follow-Up [facility] Family & Internal Medicine [facility] [address] [place] [address] Isadora Adams [place] [address] [place] [phone] LH, LUTEINIZING HORMONE, FSH, FOLLICLE STIM HORMONE, [...] Sex Assigned at Female 09/08/2024 8:07 AM PICKER PACKER Legal Sex Female 5:06 PM CDT Gender [...] 02/20/2025 9:05 AM MACOT Ra kan Adams, ENGINEER SYSTEM ADMINISTRATOR Active Not being able to stop or control worrying 3 02/20/2025 9:05 AM MACOT Ra kan Adams, ENGINEER SYSTEM ADMINISTRATOR Active Worrying too much about different things 3 02/20/2025 9:05 AM MACOT Ra kan Adams, ENGINEER SYSTEM ADMINISTRATOR Active Trouble relaxing 3 02/20/2025 9:05 AM CDT Isadora Gant NP Active Being so restless that it is hard to sit still 3 02/20/2025 9:05 AM MACOT Machelle Adams, ENGINEER SYSTEM ADMINISTRATOR Active Becoming easily annoyed or irritable 3 02/20/2025 9:05 AM MACOT Ra kan Adams, ENGINEER SYSTEM ADMINISTRATOR Active Feeling afraid as if something awful might happen 3 02/20/2025 9:05 AM Ra kan Manzo, ENGINEER SYSTEM ADMINISTRATOR Active TJ-7 Total Score 21 02/20/2025 9:05 [...] Description 03/19/2025 9:30 AM CDT Office Visit [facility] Family & Internal Medicine [facility] [address] [place] [address] [place] [address] [phone] 04/04/2025 10:40 AM CDT Office Visit [facility]ology Specialty [facility] [place] [address] [place] [address] [place] [address] [place], [place] [phone] Christine Alberts NP 3 [facility] [address] [place] [address] documented as of this encounter Visit Diagnoses Not on filedocumented in this encounter Additional Health Concerns Assessment Noted Time PHQ-9 Depression Total Score: 26 025 9:05 AM CDT documented as of this encounter Care Teams Slasher Tender Helper Relationship Specialty [place] [address] [place], [place] [id number] PCP - General FAMILY PRACTICE 09/27/23 documented as of this encounter
--- OUTSIDE RECORDS SUMMARY | 2025-03-14 09:40 | XMS_ITS | Encounter Summary ---
Author Organization [facility] Address [address] [place] [address] Care Team Providers Care Switchboard Manager Name Role Phone Fredrick Alberts MD Primary Care Provider [phone] Encounter Details Date Type Department Care Team (Latest Contact Info) Description 01/31/2025 Results Follow-Up [facility] Family & Internal Medicine [facility] [address] [place] [address] Fred[place]ts [place] [address] [place] [phone] GI PANEL PCR - STOOL, COMPREHENSIVE METABOLIC [...] Sex Assigned at Female 09/08/2024 8:07 AM PLANT PROTECTION GUARD Legal Sex Female 5:06 PM CDT Gender [...] Description 03/19/2025 9:30 AM CDT Office Visit [facility] Family & Internal Medicine [facility] [address] [place] [address] [place] [address] [id number] 04/04/2025 10:40 AM CDT Office Visit [facility]enterology Specialty [facility] [place] [address] [place] [address] [place] [address] [place], [place] [phone] Christine Alberts NP 3 [facility] [address] [place] [address] documented as of this encounter Visit Diagnoses Not on filedocumented in this encounter Care Teams Switchboard Manager Relationship Specialty [place] [address] [facility] [address] PCP - General FAMILY PRACTICE 09/27/23 documented as of this encounter
--- OUTSIDE RECORDS SUMMARY | 2025-03-14 09:41 | XMS_ITS | Encounter Summary ---
Author Organization [facility] Address [address] [place] [address] Care Team Providers Care Sales Teacher Name Role Phone Fredrick Alberts MD Primary Care Provider [phone] Encounter Details Date Type Department Care Team (Late Contact Info) Description 05/01/2024 [facility] Patient Accounts [address] [place] [address] [place] [facility] Adjustment Social History Tobacco Use [...] Sex Assigned at Female 09/08/2024 8:07 AM X RAY SERVICE ENGINEER Legal Sex Female 5:06 PM CDT Gender Identity Not on file Sexual Orientation Not on file documented as of this encounter Plan of Treatment Upcoming Encounters Date Type Department Care Team (Late Contact Info) Description 03/19/2025 9:30 AM CDT Office Visit [facility] Family & Internal Medicine [address] [address] Isadora Adams, HOG STICKER [address] [place] [address] 04/04/2025 10:40 AM CDT Office Visit [facility]ty [facility] [place] [address] [place] [address] [place] [address] [place] [address] Christine Alberts, SHARLENE [address] [address] documented as of this encounter Visit Diagnoses Not on filedocumented in this encounter Care Teams Sales Teacher Relationship Specialty [place] [address] [place] [address] PCP - General FAMILY PRACTICE 09/27/23 documented as of this encounter
--- OUTSIDE RECORDS SUMMARY | 2025-03-14 09:41 | XMS_ITS | Encounter Summary ---
Author Organization [facility] Address [address] [place] [address] Care Team Providers Care Public Improvement Inspector Name Role Phone Fredrick Alberts MD Primary Care Provider [phone] Encounter Details Date Type Department Care Team (Late st Contact Info) Description 07/26/2024 RestoMestot Message Enc [facility] Family & Internal [address] [address] Lauren, [facility] Provider Due for appt Social History Tobacco [...] Sex Assigned at Female 09/08/2024 8:07 AM COMMUNITY WORKER Legal Sex Female 5:06 PM CDT Gender Identity Not on file Sexual Orientation Not on file documented as of this encounter Plan of Treatment Upcoming Encounters Date Type Department Care Team (Late st Contact Info) Description 03/19/2025 9:30 AM CDT Office Visit [facility] Family & Internal [facility] [address] [place] [address] [place] [address] [facility] [address] [address] 04/04/2025 10:40 AM CDT Office Visit [facility] [place] [address] [place] [address] [place] [address] [place] [address] Christine Alberts, SHARLENE 3 [facility] [address] [place] [address] documented as of this encounter Visit Diagnoses Not on filedocumented in this encounter Care Teams Public Improvement Inspector Relationship Specialty [place] [address] [place] [address] PCP - General FAMILY PRACTICE 09/27/23 documented as of this encounter
--- OUTSIDE RECORDS SUMMARY | 2025-03-14 09:41 | XMS_ITS | Referral Summary ---
Author Organization [facility] Address [address] [place] [address] Care Team Providers Care Search Strategist Name Role Phone Rodrick Hernández MD Unavailable [phone] Fredrick Alberts MD Primary Care Provider [phone] Romero CORRALES MD, Dell Ye Unavailable [phone] Allergies Active Allergy Reactions Criticality Noted Date [...] 1 tablet (100 mcg total) by mouth manager rfid before breakfast 0 Active Nurtec ODT tablet,disinteg [...] on file Legal Sex Female 12:51 PM HI LIFT OPERATOR Gender Identity Not on file Sexual Orientation [...] on file Medical Devices Implanted Type Area Box Spring Upholsterer Device Identifier Shelf Expiration Date Model / Serial / Lot Plate (X2) Plate Left: Arm Screw (X24) Screw Left: Arm Hip Left: Hip Left Knee Replacement Left: Knee Insurance [place] [id number] [facility] MEDICARE ADVANTAGE [address] [address] UHC MEDICARE ADVANTAGE Care Teams Search Strategist Relationship Specialty [place] [address] [place] [address] PCP - General Family Practice 03/13/24 Rodrick Hernández MD Medical Oncologist/Upfitter Hematology and Oncology 04/09/20 Dell Jasso II, MD [address] [place] [address] Consulting Physician Otolaryngology 04/26/24
--- OUTSIDE RECORDS SUMMARY | 2025-03-14 09:41 | XMS_ITS | Encounter Summary ---
Author Organization [facility] Address [address] [place] [address] Care Team Providers Care Ekg Technician Name Role Phone Fredrick Alberts MD Primary Care Provider [phone] Encounter Details Date Type Department Care Team (Late st Contact Info) Description 09/04/[address] [facility] [address] [place] [address] [place] [address] [place] [address] Social History Tobacco Use Types [...] Sex Assigned at Female 09/08/2024 8:07 AM SLIP COVER ESTIMATOR Legal Sex Female 5:06 PM CDT Gender Identity Not on file Sexual Orientation Not on file documented as of this encounter Plan of Treatment Upcoming Encounters Date Type Department Care Team (Late st Contact Info) Description 03/19/2025 9:30 AM CDT Office Visit [facility] Family & Internal Medicine [facility] [address] [place] [address] [place] [address] [address] 04/04/2025 10:40 AM CDT Office Visit [facility] Gastro[facility]ology [facility]ty [facility] [place] [address] [place] [address] [place] [address] [place] [address] Christine Alberts NP [address] [address] documented as of this encounter Visit Diagnoses Diagnosis Vitamin B12 deficiency- Primary Other B-complex deficiencies documented in this encounter Care Teams Ekg Technician Relationship Specialty [place] [address] [place], [place] [phone] PCP - General FAMILY PRACTICE 09/27/23 documented as of this encounter
--- OUTSIDE RECORDS SUMMARY | 2025-03-14 09:41 | XMS_ITS | Encounter Summary ---
Author Organization [facility] Address [address] [place] [address] Care Team Providers Care Quality Assurance Intern Name Role Phone Fredrick Alberts MD Primary Care Provider [phone] Reason for Visit * Reason Comments Image (SCAN) Encounter Details Date Type Department Care Team (Latest Contact Info) Description 03/07/2025 Scan HEALTH INFO [facility] Scanned, Doc Med Group Image (SCAN) Social History Tobacco Use Types Packs/Day Years [...] Sex Assigned at Female 09/08/2024 8:07 AM CLUBHOUSE ATTENDANT Legal Sex Female 5:06 PM CDT Gender Identity Not on file Sexual Orientation Not on file documented as of this encounter Plan of Treatment Upcoming Encounters Date Type Department Care Team (Late st Contact Info) Description 03/19/2025 9:30 AM CDT Office [facility] Family & Internal Medicine [facility] [address] [place] [address] Isadora Adams CHECKOUT SUPERVISOR [address] [facility] [address] [address] 04/04/2025 10:40 AM CDT Office Visit [facility] Gastroenterology Specialty Clinic [place] [address] [place] [address] [place] [address] [place] [address] Christine Alberts, SHARLENE 3 [facility] [address] [place] [address] documented as of this encounter Procedures Procedure Name Priority Date/Time Associated Diagnosis Comments IMAGE GENERIC 03/07/2025 documented in this encounter Results * IMAGE GENERIC (03/07/2025) Anatomical Region Laterality Modality Other 03/07/2025 us Doc Med Group Scanned SCANNING Final Resu lt documented in this encounter Visit Diagnoses Not on filedocumented in this encounter Additional Health Concerns Assessment Noted Time PHQ-9 Depression Total Score: 23 025 12:00 PM CDT documented as of this encounter Care Teams Quality Assurance Intern Relationship Specialty [place] [address] [place] [address] PCP - General FAMILY PRACTICE 09/27/23 documented as of this encounter
--- OUTSIDE RECORDS SUMMARY | 2025-03-14 09:41 | XMS_ITS | Clinical Summary ---
Author Organization [facility] Address [address] [place] [id number] Care Team Providers Care Width Stripper Name Role Phone Rodrick Hernández MD Unavailable [phone] Fredrick Alberts MD Primary Care Provider [phone] Romero CORRALES MD, Dell Ye Unavailable Allergies Active Allergy Reactions Criticality Noted Date [...] 1 tablet (100 mcg total) by mouth early childhood coordinator before breakfast 0 Active Nurtec ODT tablet,disinteg [...] Site/Laterality Comments ELBOW SURGERY Left W/ HARDWARE W[place] TOTAL ABDOMINAL HYSTERECT W/WO RMVL TUBE OVARY [...] on file Legal Sex Female 12:51 PM BROILER CHEF OR COOK Gender Identity Not on file Sexual Orientation [...] Regular Well Visit/Exam 18-64 11/28/1983 Influenza Vaccine (#1) 2025 , 05/04/2022, 05/24/2021, Additional history exists DTaP/Tdap/Td Vaccine (3 - Td or Tdap) 09/01/2032 09/01/2022, 06/08/2017 Pneumococcal vaccine <65 Aged Out 10/20/2016 No longer eligible based on patient's age to complete this topic Zoster Vaccine Completed 10/19/2022, 07/16, 09/03/2016 Medical Devices Implanted Type Area Nuclear Equipment Sales Engineer Device Identifier Shelf Expiration Date Model / Serial / Lot Plate (X2) Plate Left: Arm Screw (X24) Screw Left: Arm Hip Left: Hip Left Knee Replacement Left: Knee Insurance [facility] MEDICARE ADVANTAGE Member Subscriber Plan / Payer (Ef fective 2023-Present) Name:Laine Griggs Relation to Subscriber:Self Name:Laine Griggs Payer ID:[id number] (NAIC) Type:[facility] MEDICARE Address: [place] [id number] UHC MEDICARE ADVANTAGE Member Subscriber Plan / Payer (Ef fective 2023-Present) Name:Laine Griggs Relation to Subscriber:Self Name:Laine Griggs Payer ID:[id number] (NAIC) Type:[facility] MEDICARE Address: [place] [phone] Care Teams Width Stripper Relationship Specialty [place] [address] [place] [address] PCP - General Family Practice 03/13/24 Rodrick Hernández MD Medical Oncologist/Lump Inspector Hematology and Oncology 04/09/20 Dell Jasso II, MD [address] [place] [address] Consulting Physician Otolaryngology 04/26/24
--- OUTSIDE RECORDS SUMMARY | 2025-03-14 09:41 | XMS_ITS | Clinical Summary ---
Author Organization [facility] Address [facility] [place] [address] Care Team Providers Care Supervisor Cab Name Role Phone Fredrick Alberts MD Primary Care Provider [phone] Allergies Active Allergy Reactions Criticality Noted Date [...] x 25 MG KitIndications:Bi polar 2 disorder ([facility]) Take 25 mg by mouth daily for 14 days, THEN 50 mg daily for 14 days. 1 kit 02/20/20 25 025 Discontinued(I nsurance denial) Active Problems Problem Noted Date Diagnosed Date Bipolar 2 disorder ([facility]) 02/20/2025 TJ (generalized anxiety disorder) 02/20/2025 [...] recurrent major depressive disorder, without psychotic features ([facility]) 09/26/2018 Hypogammaglobulinemia ([facility]) 07/03/2015 Adenocarcinoma of cervix ([facility]) 02/28 Anemia 02/29/2012 Encounters Date Type Department Care Team Description 03/07/2025 Scan Fablistic INFO SRVCS Scanned, Doc [facility] Image (SCAN) 03/06/2025 Customer BOOM (formerly [employer])t Message Enc [facility] Internal [address] [phone] Larry Adams NP Contact information for Dr. Martines's office 03/05/2025 10:45 AM CDT Office Visit [address] [phone] Larry Adams NP Anxiety; Depression 03/05/2025 Travel 02/21/[address] [phone] Fredrick Alberts MD Medication Information 02/20/[address] [phone] Fredrick Alberts MD Medication Request 02/20/2025 Results Follow-Up [address] [phone] Larry Adams, MOBILE PET GROOMER LH, LUTEINIZING HORMONE, FSH, FOLLICLE STIM HORMONE, HEMOGLOBIN, GLYCOSYLATED, Additional followed-up results: 8 02/19/2025 5:09 PM CDT - 02/19/2025 11:59 PM CDT Hospital Encounter [facility] [address] [place] [address] Larry Adams NP Discharge Disposition: Home or Self Care (Routine Discharge) 02/19/2025 4:10 PM CDT Laboratory Only [facility] Internal [address] [phone] Larry Adams NP 02/19/2025 2:30 PM CDT Office Visit [facility] Internal [address] [phone] Larry Adams NP Anxiety; Depression (Here to discuss depression and anxiety) 02/19/2025 Travel 02/01/2025 MyChart Message Enc [address] [phone] Fredrick Alberts MD Diarrhea 01/31/2025 Results Follow-Up [address] [phone] Fredrick Alberts MD GI PANEL PCR - STOOL, COMPREHENSIVE METABOLIC PANEL, CBC W/DIFF AUTOMATED 01/30/2025 10:22 AM CDT - 01/30/2025 11:59 PM CDT Hospital Encounter [facility] [address] [place] [address] Fredrick Alberts MD Discharge Disposition: Home or Self Care (Routine Discharge) 01/30/2025 10:10 AM CDT Laboratory Only [address] [phone] Fredrick Alberts MD 01/30/2025 7:00 AM CDT Office Visit [address] [phone] Fredrick Alberts MD Tremors; Diarrhea (Pt states [...] Shingrix 10/19/2022,08/03/2022 Tdap (Generic) 09/01/2022,06/08/2017 Zoster (Zostavax) [address]65 Unt/0.65Ml 09/03/2016 Family History Medical History Relation [...] Sex Assigned at Female 09/08/2024 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..] Vaccines Completed 10/19/2022, 07/16, 09/03/2016 PHQ-2 (Physician Jamul) Completed 03/05/2025 Meningococcal B Vaccine Aged Out [...] Date/Time Associated Diagnosis Comments IMAGE GENERIC 03/07/2025 COLLECTION VENOUS BLOOD VENIPUNCTURE Routine 02/19/2025 4:07 [...] infections from Last 3 Months Results * IMAGE GENERIC (03/07/2025) Anatomical Region Laterality Modality Other 03/07/2025 us Doc [facility] Scanned SCANNING Final Resu lt * TSH W/REFLEX (02/19/2025 4:04 PM CDT) TSH 1.078 0.358 - 3.74 uIU/ML 02/19/2025 5:56 PM CDT [facility] Comment: HIGH DOSES OF BIOTIN MAY INTERFERE WITH THIS TEST RESULT. CORRELATION TO CLINICAL HISTORY AND PRESENTATION RECOMMENDED. FREE T4 NOT INDICATED 02/19/2025 4:04 PM CDT Larry Adams MOBILE PET GROOMER LABORATORY Final Result [facility] [address] [place] [address], [place] [phone] * HEMOGLOBIN, GLYCOSYLATED (02/19/2025 4:04 PM CDT) HGB A1C 4.8 <5.7 % 02/19/2025 5:52 PM CDT [facility] Comment: INCREASED RISK OF DIABETES <5.7% NON-DIABETES 5.7-6.4% INCREASED RISK FOR FUTURE DIABETES > OR = 6.5 CONSISTENT WITH DIABETES STANDARDS OF MEDICAL CARE IN DIABETES-2010 DIABETES CARE, 33(SUPP 1): S1-S61,2010 ESTIMATED AVG GLUCOSE 91 mg/dL 02/19/2025 5:52 PM CDT [facility] 02/19/2025 4:04 PM CDT Larry Adams NP LABORATORY Final Result [facility] [address] [place] [address], [place] [phone] * VITAMIN B-12 (02/19/2025 4:04 PM CDT) VITAMIN B12 S/P/B 354 193 - 986 PG/ML 02/19/2025 6:12 PM CDT [facility] 02/19/2025 4:04 PM CDT Larry Adams NP LABORATORY Final Result Performing Organization Address City/[facility]/ZIP Co de Phone Number [facility] [address] [place] [address], [place] [phone] * (ABNORMAL) LIPID PANEL (02/19/2025 4:04 PM CDT) CHOLESTEROL 200(H) <200.0 MG/DL 02/19/2025 5:56 PM CDT [facility] TRIGLYCERIDES 55 <150 MG/DL 02/19/2025 5:56 PM CDT [facility] HDL 86 >40.0 MG/DL 02/19/2025 5:56 PM CDT [facility] LDL (CALCULATED) 103(H) <100 MG/DL 02/19/2025 5:56 PM CDT [facility] Comment:CALCULATED USING THE FRIEDEWALD EQUATION NON HDL CHOLESTEROL 114 <130 MG/DL 02/19/2025 5:56 PM CDT [facility] CHOL/HDL RATIO 2.3 0.0 - 4.5 02/19/2025 5:56 PM CDT [facility] VLDL CALCULATION 11 5 - 55 MG/DL 02/19/2025 5:56 PM T [facility] LIPID INTERPRETATION 02/19/2025 5:56 PM CDT [facility] Comment: NIH CONCENSUS REPORT RECOMMENDATIONS: ADULT CHILD LOW RISK: CHOLESTEROL <200 <170 TRIGLYCERIDE <150 --- HDL >=60 --- LDL <100 <110 BORDERLINE: CHOLESTEROL 200-239 170-199 TRIGLYCERIDE 150-199 --- HDL 40-59 --- LDL 100-159 110-129 HIGH RISK: CHOLESTEROL >=240 >=200 TRIGLYCERIDE >=200 --- HDL <40 --- LDL >=160 >=130 02/19/2025 4:04 PM CDT us Larry Adams NP LABORATORY Final Result Performing Organization Address City/State[facility] Phone Number [facility] [address] [place] [address], [place] [phone] * LH, LUTEINIZING HORMONE (02/19/2025 4:04 PM CDT) Luteinizing Hormone 21.4 MIU/ML 02/19/2025 8:03 PM CDT [facility] Comment: REFERENCE RANGES FOR FEMALES: FOLLICULAR 2.4-12.6 MID-CYCLE 14.0-95.6 LUTEAL 1.0-11.4 POSTMENOPAUSAL 7.7-58.5 02/19/2025 4:04 PM CDT us Larry C Mendez-Giffhorn MOBILE PET GROOMER LABORATORY Final Result [facility] [address] [place] [address], [place] [phone] * FSH, FOLLICLE STIM HORMONE (02/19/2025 4:04 PM CDT) FSH 78.5 MIU/ML 02/19/2025 9:45 PM CDT [facility] Comment: REFERENCE RANGES FOR FEMALES: FOLLICULAR 3.5-12.5 MID-CYCLE 4.7-21.5 LUTEAL 1.7-7.7 POSTMENOPAUSAL 25.8-134.8 02/19/2025 4:04 PM CDT Larry Adams MOBILE PET GROOMER LABORATORY Final Result Performing Organization Address [facility] de Phone Number [facility] [address] [place] [address], [place] [phone] * ESTRADIOL (02/19/2025 4:04 PM CDT) ESTRADIOL <11 PG/ML 02/20/2025 4:41 PM CDT [facility] Comment: AGE 0 TO [...] COMPARABLE. 02/19/2025 4:04 PM CDT Larry Adams MOBILE PET GROOMER LABORATORY Final Result Performing Organization Address City/[facility]/ZIP Co de Phone Number [facility] [address] [place] [address], [place] [phone] * TESTOSTERONE, TOTAL (02/19/2025 4:04 PM CDT) Pathologist [facility] TESTOSTERONE TOTAL 8 2 - 45 ng/dL 02/22/2025 1:21 PM CDT [facility] Comment: For additional information, please refer to http://education.Eloqua/faq/ [email or web address] (This link is being provided for informational/ educational purposes only.) This test was developed and its analytical performance characteristics have been determined by [employer] [place], [place]. It has not been cleared or approved by the U.S. Food and Drug Administration. This assay has been validated pursuant to the CLIA regulations and is used for clinical purposes. Test Performed by [facility], [employer] [facility], [address] [place] [address] Brendan Adan M.D., Ph.D., Director of Laboratories , CLIA [id number] 02/19/2025 4:04 PM CDT Larry Adams NP LABORATORY Final Result [facility] [address] [phone], * PROGESTERONE (02/19/2025 4:04 PM CDT) [facility] PROGESTERONE <0.2 NG/ML 02/20/2025 4:41 PM CDT [facility] Comment: FOLLIC PHASE: 0.2 TO 1.7 ng/mL LUTEAL PHASE: 2.3 TO 24.2 ng/mL POST MENAPAUSAL: <0.2 TO 0.9 ng/mL 1ST TRIMESTER: 11.4 TO 41.0 ng/mL 2ND TRIMESTER: 13.9 TO 156.0 ng/mL 3RD TRIMESTER: 51.4 TO >200.0 ASSAY PERFORMED BY CHEMILUMINESCENCE METHODOLOGY USING [employer]. PATIENT RESULTS DETERMINED BY ASSAYS USING DIFFERENT MANUFACTURERS FOR METHODS MAY NOT BE COMPARABLE. 02/19/2025 4:04 PM CDT Larry Roxie Adams MOBILE PET GROOMER LABORATORY Final Result [facility] [address] [place] [address], [place] [phone] * (ABNORMAL) VITAMIN D, 25 OH (02/19/2025 4:04 PM CDT) VITAMIN D 25 HYDROXY S/P/B 109(H) 30 - 100 NG/ML 02/19/2025 6:05 PM CDT [facility] Comment: INTERPRETATION DEFICIENT <20 INSUFFICIENT 20-29 SUFFICIENT 30-100 02/19/2025 4:04 PM CDT Larry Roxie Adams MOBILE PET GROOMER LABORATORY Final Result Performing Organization Address [facility] Co de Phone Number [facility] [address] [place] [address], [place] [phone] * (ABNORMAL) MG/PCCL UDS W CONF (02/19/2025 3:59 PM CDT) RESULT SUMMARY [facility] Comment: Prescribed Prescribed Not Prescribed Consistent Inconsistent Inconsistent Xanax(TM) PRESCRIBED DRUG 1 (U) Xanax(TM) [facility] MAIDA FENTANYL SCREEN (U) NEGATIVE <0.5 ng/mL [facility] CHARISSA HERNÁNDEZ MORPHINE (U) NEGATIVE <10 ng/mL [facility] CHARISSA HERNÁNDEZ DESMETHYLTRAMADOL (U) NEGATIVE <100 ng/mL [facility] CHARISSA HERNÁNDEZ TRAMADOL (U) NEGATIVE <100 ng/mL [facility] CHARISSA HERNÁNDEZ TRAMADOL COMMENTS [facility] CHARISSA HERNÁNDEZ Comment:See LDT Notes AMPHETAMINES PM NEGATIVE <500 ng/mL [facility] WOOD BETTY BARBITURATES PM (U) NEGATIVE <300 ng/mL [facility] BENZODIAZEPINES PM (U) POSITIVE(A) <100 ng/mL [facility] [...] PM (U) NEGATIVE <50 ng/mL [facility] LORAZEPAM PM (U) NEGATIVE <50 ng/mL [facility] NORDIAZEPAM PM (U) NEGATIVE <50 ng/mL [facility] OXAZEPAM PM (U) NEGATIVE <50 ng/mL [facility] TEMAZEPAM PM NEGATIVE <50 ng/mL [facility] BENZODIAZEPINES COMMENTS [facility] [place] Comment:See Benzodiazepines Notes, LDT Notes COCAINE METABOLITE PM (U) NEGATIVE <150 ng/mL [facility] [place] MARIJUANA METABOLITE PM (U) NEGATIVE <20 ng/mL [facility] [place] METHADONE PM (U) NEGATIVE <100 ng/mL [facility] [place] OPIATES PM (U) NEGATIVE <100 ng/mL [facility] [place] OXYCODONE PM (U) NEGATIVE <100 ng/mL [facility] CREATININE RANDOM (U) 145.0 > or = 20.0 mg/dL [facility] pH PM (U) 5.4 4.5 - 9.0 [facility] OXIDANT NEGATIVE <200 mcg/mL [facility] NOTE [facility] Comment: This drug testing is for medical [...] analytical performance characteristics have been determined by [employer]. It has not been cleared or approved by the FDA. This assay has been validated pursuant to the CLIA regulations and is used for clinical purposes. medMATCH(R) enables providers to identify if drug use is consistent or inconsistent with a corresponding prescribed medication(s) list. Healthcare Providers needing Interpretation assistance, please contact us at [phone] ( ) M-F, 8am to 10pm EST URINE SPECIMEN / Unknown 02/19/2025 3:59 PM CDT 02/20/2025 4:43 AM CDT Narrative Resulting Agency Comment Performing Organization Information: Site ID: [id number] Name: [facility] Address: [address] [place] [address] Director: Cory Felix Site ID: [id number] Name: [facility] Address: [address] [place] [address] Director: Debo Griffin MD Larry Adams MOBILE PET GROOMER URINE ORDERABLES Final Result Performing Organization Address City/State/[facility] Co de Phone Number [facility] [address] [place] [address], [facility] [place] [address] [place] [address] * COMPREHENSIVE METABOLIC PANEL (01/30/2025 10:14 AM CDT) GLUCOSE 83 70 - 99 MG/DL 01/30/2025 1:20 PM CDT [facility] BUN 10 7 - 18 MG/DL 01/30/2025 1:20 PM CDT [facility] CREATININE S/P/B 0.74 0.55 - 1.02 MG/DL 01/30/2025 1:20 PM CDT [facility] SODIUM S/P/B 140 136 - 145 MMOL/L 01/30/2025 1:20 PM CDT [facility] POTASSIUM S/P/B 4.0 3.5 - 5.1 MMOL/L 01/30/2025 1:20 PM CDT [facility] CHLORIDE S/P/B 105 100 - 108 MMOL/L 01/30/2025 1:20 PM [facility] CO2 25.5 21 - 32 MMOL/L 01/30/2025 1:20 PM [facility] CALCIUM S/P/B 9.1 8.5 - 10.1 MG/DL 01/30/2025 1:20 PM [facility] BILIRUBIN TOTAL S/P/B 0.4 0.2 - 1.2 MG/DL 01/30/2025 1:20 PM [facility] TOTAL PROTEIN S/P/B 6.4 6.4 - 8.2 G/DL 01/30/2025 1:20 PM [facility] ALBUMIN S/P/B 3.9 3.4 - 5.0 G/DL 01/30/2025 1:20 PM [facility] AST 21 15 - 37 U/L 01/30/2025 1:20 PM [facility] ALT 33 14 - 55 U/L 01/30/2025 1:20 PM [facility] ALKALINE PHOSPHATASE S/P/B 74 50 - 136 U/L 01/30/2025 1:20 PM [facility] ANION GAP 9.5 5 - 15 MMOL/L 01/30/2025 1:20 PM [facility] BUN CREATININE RATIO 13.5 6 - 26 01/30/2025 1:20 PM [facility] A/G RATIO 1.6 1.0 - 2.0 RATIO 01/30/2025 1:20 PM [facility] GFR ESTIMATE >90 >90 ML/MIN/1.7 3 M2 01/30/2025 1:20 PM [facility] Comment: NOTE: eGFR is not calculated for patients <18 years of age. This is an estimated GFR calculation using the new CKD EPI creatinine equation without race and so does not require a correction factor for race. This estimated GFR should not be used for calculating drug doses. 01/30/2025 10:1 4 AM CDT us Fredrick Alberts MD LABORATORY Final Resul t [facility] [address] [facility] [place] [address], [place] [phone] * (ABNORMAL) CBC W/DIFF AUTOMATED (01/30/2025 10:14 AM CDT) WBC 5.44 4.4 - 11.0 x10'3/uL 01/30/2025 1:01 PM CDT [facility] RBC 4.19(L) 4.50 - 5.10 x10'6/uL 01/30/2025 1:01 PM CDT [facility] HGB 13.3 12.3 - 15.3 G/DL 01/30/2025 1:01 PM CDT [facility] HCT 39.8 35.9 - 44.6 % 01/30/2025 1:01 PM CDT [facility] MCV 95.0 80.0 - 96.0 FL 01/30/2025 1:01 PM CDT [facility] MCH 31.7(H) 25.3 - 30.9 PG 01/30/2025 1:01 PM CDT [facility] MCHC 33.4 31.0 - 34.1 G/DL 01/30/2025 1:01 PM CDT [facility] RDW 12.3(L) 12.4 - 15.1 % 01/30/2025 1:01 PM CDT [facility] PLT 225 151 - 353 x10'3/uL 01/30/2025 1:01 PM CDT [facility] MPV 10.1 9.6 - 12.0 FL 01/30/2025 1:01 PM T [facility] RBC MORPHOLOGY NORMAL 01/30/2025 1:01 PM T [facility] PLT MORPH. NORMAL 01/30/2025 1:01 PM T [facility] WBC MORPHOLOGY NORMAL 01/30/2025 1:01 PM CDT [facility] LYMPHOCYTES % 39.0 15.8 - 45.0 % 01/30/2025 1:01 PM T [facility] NEUTROPHILS % 52.8 42.1 - 71.9 % 01/30/2025 1:01 PM T [facility] MONOCYTES % 6.6 5.7 - 12.5 % 01/30/2025 1:01 PM T [facility] EOSINOPHILS 0.7 0.0 - 5.6 % 01/30/2025 1:01 PM T [facility] BASOPHILS 0.7 0.0 - 1.3 % 01/30/2025 1:01 PM T [facility] ABS. NEUTROPHILS 2.87 1.40 - 6.00 x10'3/uL 01/30/2025 1:01 PM T [facility] IMMATURE GRANS % 0.2 0.0 - 0.5 % 01/30/2025 1:01 PM T [facility] ABS. LYMPHOCYTES 2.12 0.80 - 4.70 x10'3/uL 01/30/2025 1:01 PM T [facility] 01/30/2025 10:1 4 AM CDT us Fredrick Alberts MD LABORATORY Final Resul t [facility] [address] [place] [address], * GI PANEL PCR - STOOL (01/30/2025 10:00 AM CDT) CAMPYLOBACTER PCR (STOOL) NOT DETECTED NOT DETECTED 01/30/2025 3:38 PM CDT [facility] PLESIOMONAS SHIGELLOIDES PCR (STOOL) NOT DETECTED NOT DETECTED 01/30/2025 3:38 PM CDT [facility] SALMONELLA PCR (STOOL) NOT DETECTED NOT DETECTED 01/30/2025 3:38 PM CDT [facility] VIBRIO PCR (STOOL) NOT DETECTED NOT DETECTED 01/30/2025 3:38 PM CDT [facility] VIBRIO CHOLERAE PCR (STOOL) NOT DETECTED NOT DETECTED 01/30/2025 3:38 PM CDT [facility] YERSINIA ENTEROCOLITICA PCR (STOOL) NOT DETECTED NOT DETECTED 01/30/2025 3:38 PM CDT [facility] ENTEROAGGREGATIVE ECOLI PCR (STOOL) NOT DETECTED NOT DETECTED 01/30/2025 3:38 PM CDT [facility] ENTEROPATHOGENIC ECOLI PCR (STOOL) NOT DETECTED NOT DETECTED 01/30/2025 3:38 PM CDT [facility] ENTEROTOXIGENIC ECOLI PCR (STOOL) NOT DETECTED NOT DETECTED 01/30/2025 3:38 PM CDT [facility] SHIGA LIKE TOXIN ECOLI PCR (STOOL) NOT DETECTED NOT DETECTED 01/30/2025 3:38 PM CDT [facility] SHIG/ENTEROINVASIVE ECOLI PCR (STOOL) NOT DETECTED NOT DETECTED 01/30/2025 3:38 PM CDT [facility] CRYPTOSPORIDIUM PCR (STOOL) NOT DETECTED NOT DETECTED 01/30/2025 3:38 PM CDT [facility] CYCLOSPORA CAYETANENSIS PCR (STOOL) NOT DETECTED NOT DETECTED 01/30/2025 3:38 PM CDT [facility] ENTAMOEBA HISTOLYTICA PCR (STOOL) NOT DETECTED NOT DETECTED 01/30/2025 3:38 PM CDT [facility] GIARDIA LAMBLIA PCR (STOOL) NOT DETECTED NOT DETECTED 01/30/2025 3:38 PM CDT [facility] ADENOVIRUS F40/41 PCR (STOOL) NOT DETECTED NOT DETECTED 01/30/2025 3:38 PM CDT [facility] ASTROVIRUS PCR (STOOL) NOT DETECTED NOT DETECTED 01/30/2025 3:38 PM CDT [facility] NOROVIRUS GI/GII PCR (STOOL) NOT DETECTED NOT DETECTED 01/30/2025 3:38 PM CDT [facility] ROTAVIRUS A PCR (STOOL) NOT DETECTED NOT DETECTED 01/30/2025 3:38 PM CDT [facility] SAPOVIRUS PCR (STOOL) NOT DETECTED NOT DETECTED 01/30/2025 3:38 PM CDT [facility] STOOL SPECIMEN / Unknown 01/30/2025 10:00 AM CDT Fredrick Alberts MD MICROBIOLOGY [facility] Final Result [facility] [address] [place] [address], [place] [phone] from Last [address] [facility] Care Teams Supervisor Cab Relationship Specialty [place] [id number] [place] [address] PCP - General FAMILY PRACTICE 09/27/23
[2025-03-14 10:57] LABS: CRP < 0.5 mg/dL (<1.0)
== END 2025-03-14 09:20 | disposition home or self-care (01) ==
PROVIDERS: PCP Family Medicine; Visit Provider Orthopaedic Surgery
DX: T84.84XA Pain due to internal orthopedic prosthetic devices, implants and grafts, initial encounter (principal); Z96.611 Presence of right artificial shoulder joint
CPT/HCPCS: 36415; 85652; 86140

== ENCOUNTER 2025-04-26 11:08 | Outpatient (CLI) | payer MEDICARE, SELFPAY ==
[2025-04-26 11:53] LABS: CRP 0.6 mg/dL (<1.0)
== END 2025-04-26 11:09 | disposition home or self-care (01) ==
PROVIDERS: PCP Family Medicine; Visit Provider Orthopaedic Surgery
DX: T84.84XA Pain due to internal orthopedic prosthetic devices, implants and grafts, initial encounter (principal); Z96.611 Presence of right artificial shoulder joint
CPT/HCPCS: 36415; 85652; 86140